=== PATIENT | female | born 1970 | race Caucasian/White ===

== ENCOUNTER 2022-02-09 00:04 | Day surgery (SDC) | payer OTHER, SELFPAY ==
[2022-01-31 12:54] VITALS: BMI 22.4
--- NOTE | 2022-01-31 13:05 | PC.NURSE ---
Report to the Outpatient Waiting Room, entrance under the green pavilion located off [facility], at time 0800 on date 02/09/22. OR Time: 1000. - You and your visitor will be asked a series of questions to screen for COVID 19 for your protection. - A mask is required within the hospital. One visitor will be allowed to accompany the patient into the hospital. Patients visitor will be instructed to remain with patient at all times or leave the building. We will allow the visitor to come back to the postoperative area when patient is ready. Preoperative COVID Testing Requirements: TO E-MAIL COPY OF CARD No COVID Test needed if: (proof is required; if not received patient will have Rapid Test prior to entry) - Patient has received COVID Vaccine at least 14 days prior to procedure date or - Patient has positive COVID test result within last 90 days of surgery date. COVID Test needed if above criteria is not met Patients may have clear liquids (water, carbonated beverages, clear teas, apple juice) until 3 hours prior to surgery with a maximum of 20 ounces. - No food from midnight until time of surgery Take the following medications with a SIP of water the morning of surgery: ALPRAZOLAM (IF NEEDED) Medications to discontinue per physician: VITAMINS/SUPPLEMENTS Date to take last dose: 02/05/22 Please no make-up, nail central african, hairspray, perfume, deodorant, or body powder the day of surgery. No jewelry (including any body piercings) or valuables the day of surgery, leave them at home. Please take a shower or bath the night before, or the morning of, surgery with an antibacterial soap. Wear comfortable, loose fitting clothing. - Jewelry must be removed prior to entering the operating room. Rings and piercings that are not removed may be cut off. - The hospital will not accept responsibility for valuables. - Please leave all valuables, including medications, at home the day of surgery. If you are going home after surgery, a licensed local hazmat driver must drive you home. - NO public transportation without another adult. - We recommend that an adult stay with you for 24 hours following discharge. - We also recommend that you do not drive, make important decision, drink alcoholic beverages, or take any drugs that were not prescribed by your health care provider for at least 24 hours after your discharge time. Follow any additional instructions given to you from your surgeon. Telephone instructions given to CHAR FORDE and asked if any additional questions and then verbalized understanding. Patient advised to call surgeon office or pre surgery nurse liaison [phone] if any additional questions.
--- NOTE | 2022-02-07 17:36 | PM.SD2 ---
Same Day Admit/Disch: HPI History of Present Illness Chief complaint: Anal Skin Tag Narrative: Florence Colon is a 51 year old female With long time history of an external hemorrhoid or large perianal skin tag. She has had intermittent episodes of itching irritation and some bleeding. Her systems became worse last fall. She was started on Anusol. She was seen in the office in October and found to have an anterior midline external hemorrhoid. Besides being uncomfortable, this is a hygiene problem. She is taken to surgery now for excision of this external hemorrhoid. [facility] Past Medical History Medical History Acalculous cholecystitis Arthritis of neck Encounter for surgical aftercare following surgery on the digestive system Spinal stenosis of cervical region Stress incontinence (female) (male) Trigger finger, right middle finger Surgical History Surgical History History of bladder suspension procedure History of hysterectomy History of laparoscopic cholecystectomy 10/23/19 History of tonsillectomy Family History Family History Father Diabetes mellitus Family history of bipolar disorder Family history of gastrointestinal disorder Hypertension Grandparent Hypertension Family history of malignant neoplasm of breast, Onset Age: 77 Family history of malignant neoplasm Family history of malignant neoplasm of breast in first degree relative Mother Family history of malignant neoplasm Family history of thyroid disease Family history of malignant melanoma Social History Social History Smoking status: Never smoker Alcohol intake: current Alcohol use details: 2/YEAR Substance use: never Substance use type: does not use Living arrangements: with family 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 [employer] Gender identity (if verbalized by the patient): Female Spiritual care concerns: No Same Day Admit/Disch: Med Pre-admit Medications Home Medications Medication Instructions Recorded Confirmed Type cholecalciferol (vitamin D3) 50 50 mcg PO DAILY 10/21/19 01/31/22 History mcg (2,000 unit) capsule cyanocobalamin (vitamin B-12) 5,000 mcg PO [id number] 10/21/19 01/31/22 History 5,000 mcg capsule omega-3 fatty acids-fish oil 360 1 cap PO DAILY 10/21/19 01/31/22 History mg-1,200 mg capsule loratadine 10 mg tablet 10 mg PO DAILY 04/07/21 01/31/22 History alprazolam 0.25 mg PO .COMPLEX PRN 01/31/22 01/31/22 History pyridoxine (vitamin B6) 100 mg PO DAILY 01/31/22 01/31/22 History vitamin E 800 unit PO DAILY 01/31/22 01/31/22 History spironolactone 50 mg tablet 50 mg PO QAM #90 tablet 02/01/22 02/09/22 Rx hydrocodone-acetaminophen 1 - 2 tablet PO Q6H PRN #12 tablet 02/09/22 Rx ketorolac 10 mg PO Q6H 4 Days #16 tablet 02/09/22 Rx Exam Const: General: comfortable, no acute distress, alert and awake HENMT: Head: normocephalic and atraumatic Mouth: Yes Normal oral and palatal mucosa present Eyes: Conjunctivae: conjunctivae normal Pupils: Equal, round and reactive pupils present EOM: EOMs intact bilaterally Neck: Neck: normal visual inspection, no lymphadenopathy and nontender Resp: Effort & Inspection: normal respiratory effort Auscultation: clear to auscultation bilaterally Cardio: Rate: regular rate Rhythm: regular rhythm Heart sounds: no gallops, no murmurs and no rubs GI: Inspection: non-distended GI Palp: Yes Soft to palpation, No Tenderness to palpation present (GI), No Hepatomegaly present and No Splenomegaly present Rectal Exam: External hemorrhoid(s) present ( large, pedunculated anterior midline external hemorrhoid.) Skin: Lesions: no lesions Rashes: no rashes Neuro: General: no focal motor deficits and CN's II-XI inta
[2022-02-09] MEDS: ACETAMINOPHEN 500 MG TABLET 1000 MG PO (08:13)
[2022-02-09] MEDS: KETOROLAC 15 MG/ML VIAL (*BKC) IV PUSH (08:39)
[2022-02-09] MEDS: LACTATED RINGERS 1,000 ML 30 ML IV CONT (08:42)
[2022-02-09 08:46] VITALS: BP 111/69; PULSE 89; RESP 16; TEMP 36.9; O2SAT 100
--- NOTE | 2022-02-09 09:29 | WPDHPUPDATE1 ---
History and Physical Update Update Date/Time: 02/09/22 09:29 History and Physical has been reviewed, including an updated exam of the patient. There are NO changes in the patient's condition. Risks, benefits, and alternatives have been discussed and questions answered. Patient agrees to proceed with procedure.
--- NOTE | 2022-02-09 09:37 | WPDANESEPPF ---
Anes - Initial Pre Proc Eval Procedure: Operation Date: 02/09/22 10:00 Proposed Procedures p Excision Anal Skin Tag - David Castellanos MD Date/Time: 02/09/22 09:37 Surgeon: David Castellanos MD Pre Op Diagnosis: Anal Skin Tag Patient Data Age: 51 Gender: F Height: 1.52 m Weight: 54.3 kg Last Vital Signs Temp 36.9 C 02/09/22 08:46 Pulse 89 02/09/22 08:46 Resp 16 02/09/22 08:46 BP 111/69 02/09/22 08:46 Pulse Ox 100 02/09/22 08:46 Allergies Allergy/AdvReac Type Severity Reaction Status Date / Time neomycin Allergy Mild Rash Verified 02/09/22 08:08 [From Neosporin ([id number])] bacitracin Allergy Unknown Rash Verified 02/09/22 08:08 polymyxin B Allergy Unknown Rash Verified 02/09/22 08:08 Home Medications Medication Instructions Recorded Confirmed Type cholecalciferol (vitamin D3) 50 50 mcg PO DAILY 10/21/19 01/31/22 History mcg (2,000 unit) capsule cyanocobalamin (vitamin B-12) 5,000 mcg PO [id number] 10/21/19 01/31/22 History 5,000 mcg capsule omega-3 fatty acids-fish oil 360 1 cap PO DAILY 10/21/19 01/31/22 History mg-1,200 mg capsule loratadine 10 mg tablet 10 mg PO DAILY 04/07/21 01/31/22 History alprazolam 0.25 mg PO .COMPLEX PRN 01/31/22 01/31/22 History pyridoxine (vitamin B6) 100 mg PO DAILY 01/31/22 01/31/22 History vitamin E 800 unit PO DAILY 01/31/22 01/31/22 History spironolactone 50 mg tablet 50 mg PO QAM #90 tablet 02/01/22 02/09/22 Rx Patient hx anesthesia problems: none Family hx anesthesia problems: none Results Review: All pre-operative results and documents have been reviewed as part of the pre-operative evaluation. [facility] Past Medical History Medical History Acalculous cholecystitis Arthritis of neck Encounter for surgical aftercare following surgery on the digestive system Spinal stenosis of cervical region Stress incontinence (female) (male) Trigger finger, right middle finger Surgical History Surgical History History of bladder suspension procedure History of hysterectomy History of laparoscopic cholecystectomy 10/23/19 History of tonsillectomy Family History Family History Father Diabetes mellitus Family history of bipolar disorder Family history of gastrointestinal disorder Hypertension Grandparent Hypertension Family history of malignant neoplasm of breast, Onset Age: 77 Family history of malignant neoplasm Family history of malignant neoplasm of breast in first degree relative Mother Family history of malignant neoplasm Family history of thyroid disease Family history of malignant melanoma Social History Social History Smoking status: Never smoker Alcohol intake: current Alcohol use details: 2/YEAR Substance use: never Substance use type: does not use Living arrangements: with family 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 Informed Consent: The patient's anesthetic plan and its attendant risks and benefits were discussed with the patient/family/POA. Questions were solicited and answers provided to the satisfaction of the patient/family/POA.
[2022-02-09] MEDS: ceFAZolin 2 GM/D5W 50 ML 2 GM/50 ML BAG IVPB (09:39)
--- NOTE | 2022-02-09 09:44 | W.PM.PROC2 ---
Procedure Note - Detailed Date of Procedure 02/09/22 Pre-op Diagnosis External hemorrhoid Post-op Diagnosis Same Procedure Performed Excision external hemorrhoid Surgeon David Castellanos MD Anesthesia General and Local (0.25% Marcaine with epinephrine) Indications Patient has a pedunculated anterior midline external hemorrhoid which is bothersome and hygiene problem. She is taken to surgery now for removal Findings Anterior midline external hemorrhoid, no other significant anorectal pathology Description of Procedure Patient was taken to surgery and placed in prone nicho-knife position. Buttocks were taped apart. Prep and drape was carried out. The perianal area was examined. Hill-Wilson anoscope was placed in the rectum and the anal canal was reviewed. No other findings other than the external hemorrhoid in the anterior midline was noted. Local was infiltrated in the area of this hemorrhoid. The hemorrhoid was excised. It was sent to pathology. The wound was closed with interrupted 4-0 chromic suture. Rectal area was dressed with Xeroform gauze fluffs and tape. Patient was returned to a supine position, awakened and taken to recovery in good condition. Sponge and needle counts were correct x2. Estimated Blood Loss -2 Drains No Packing No Pathology Yes (External hemorrhoid) Complications No immediate complications Condition Stable Disposition Same day
[2022-02-09 10:20] VITALS: BP 104/60; PULSE 85; RESP 12; O2SAT 100
[2022-02-09 10:45] VITALS: BP 117/44; PULSE 81; RESP 16
[2022-02-09 11:15] VITALS: BP 116/60; PULSE 68; RESP 14
[2022-02-09 11:45] VITALS: BP 114/51; PULSE 77; RESP 16
== END 2022-02-09 11:53 | disposition home or self-care (01) ==
PROVIDERS: PCP Family Medicine; Visit Provider Surgery
PROC: (CPT 46999; principal; 2022-02-09 10:00)
DX: K64.4 Residual hemorrhoidal skin tags (principal)
CPT/HCPCS: 46999; 88304; A9270; J0690; J1885; J2250; J2704; J3010; J7120

== ENCOUNTER 2022-05-01 10:10 | Emergency (ER) | payer OTHER, SELFPAY ==
--- NOTE | ~2022-05-01 | XR_ITS ---
XR foot RT min 3V 05/01/2022 10:26 Indication: Right foot pain and bruising Procedure: 4 views right foot Comparison: No prior studies for comparison. Findings: Lisfranc joint intact. Mild osteoarthritis of the first MTP joint. There is a small degener ative calcaneal enthesophyte. No fracture or traumatic malalignment. Impression: 1: No acute fracture. Reviewed, dictated and finalized at location A. Impression: 1: No acute fracture.
[2022-05-01 10:16] VITALS: BP 130/76; PULSE 105; RESP 16; TEMP 36.2; O2SAT 98
--- NOTE | 2022-05-01 10:38 | ED.LOWEXIN ---
HPI - Extremity Injury (Lower) General Chief Complaint: Extremity Problem,Nontraumatic Stated Complaint: right foot sore Time Seen by Provider: 05/01/22 10:11 Source: patient and RN notes reviewed History of Present Illness HPI Narrative: Patient is a 51-year-old female who presents the urgent care with complaints of pain to the ball of the right foot. Patient states its been bothering her since Monday. Patient denies of any known trauma or injury recently but states approximately 1 week ago she does believe she stepped on a bur while on vacation. Denies of any swelling or pain at that time. No other acute complaints. No acute distress noted. Patient aware of the plan of care. Some parts of this dictation were generated by voice recognition software and may contain typographical and/or grammatical inaccuracies. Related Data Home Medications Medication Instructions Recorded Confirmed cholecalciferol (vitamin D3) 50 50 mcg PO DAILY 10/21/19 03/29/22 mcg (2,000 unit) capsule cyanocobalamin (vitamin B-12) 5,000 mcg PO [id number] 10/21/19 03/29/22 5,000 mcg capsule omega-3 fatty acids-fish oil 360 1 cap PO DAILY 10/21/19 03/29/22 mg-1,200 mg capsule loratadine 10 mg tablet (Claritin) 10 mg PO DAILY 04/07/21 03/29/22 alprazolam 0.25 mg tablet 0.25 mg PO .COMPLEX PRN Anxiety 01/31/22 03/29/22 pyridoxine (vitamin B6) 100 mg 100 mg PO DAILY 01/31/22 03/29/22 tablet vitamin E 800 unit capsule 800 unit PO DAILY 01/31/22 03/29/22 triamcinolone acetonide 0.05 % 1 applic topical BID 03/29/22 03/29/22 topical ointment Allergies Allergy/AdvReac Type Severity Reaction Status Date / Time neomycin Allergy Mild Rash Verified 03/29/22 09:49 [From Neosporin ([id number])] bacitracin Allergy Unknown Rash Verified 03/29/22 09:49 polymyxin B Allergy Unknown Rash Verified 03/29/22 09:49 Review of Systems Review of Systems: CONSTITUTIONAL: Denies fever, chills, or sweats. EYES: Denies visual changes, redness, or discharge. ENT: Denies rhinorrhea, congestion, sore throat, or otalgia. CARDIOVASCULAR: Denies chest pain, palpitations, or edema. RESPIRATORY: Denies cough or dyspnea. GASTROINTESTINAL: Denies abdominal pain, nausea, vomiting, or diarrhea. GENITOURINARY: Denies dysuria or hematuria. SKIN: Denies rash or itching. MUSCULOSKELETAL: Reports of pain to the ball of the right foot NEUROLOGIC: Denies headache, numbness, or weakness. All other systems reviewed are negative, except as documented in HPI. Note PMFSH Past Medical History Medical History Acalculous cholecystitis Arthritis of neck Encounter for surgical aftercare following surgery on the digestive system Spinal stenosis of cervical region Stress incontinence (female) (male) Trigger finger, right middle finger Surgical History Surgical History History of bladder suspension procedure History of excision of lesion excision of anal skin tag 02/09/22 History of hysterectomy History of laparoscopic cholecystectomy 10/23/19 History of tonsillectomy Family History Family History Father Diabetes mellitus Family history of bipolar disorder Family history of gastrointestinal disorder Hypertension Grandparent Hypertension Family history of malignant neoplasm of breast, Onset Age: 77 Family history of malignant neoplasm Family history of malignant neoplasm of breast in first degree relative Mother Family history of malignant neoplasm Family history of thyroid disease Family history of malignant melanoma Social History Social History Alcohol intake: current Alcohol use details: 2/YEAR Substance use: never Substance use type: does not use Additional occupation/education comments: [id number] Gender identity (if ve
== END 2022-05-01 10:49 | disposition home or self-care (01) ==
PROVIDERS: Emergency Provider Nurse Practitioner Family; PCP Family Medicine
DX: M77.8 Other enthesopathies, not elsewhere classified (principal); M47.812 Spondylosis without myelopathy or radiculopathy, cervical region; M48.02 Spinal stenosis, cervical region
CPT/HCPCS: 73630; 99213; G0463

== ENCOUNTER 2022-09-11 11:57 | Emergency (ER) | payer OTHER, SELFPAY ==
--- NOTE | 2022-09-11 12:07 | ED.EAR ---
HPI - Ear Problem General Chief complaint: Ear Stated complaint: EAR INFECTION Time Seen by Provider: 09/11/22 12:26 Source: patient, RN notes reviewed and old records reviewed Mode of arrival: ambulatory Limitations: no limitations History of Present Illness HPI Narrative: 51-year-old year female presents to the [facility] with bilateral ear pain and pressure. States that she was recently diagnosed with a bilateral ear infection and just finished a round of antibiotics. Also has a history of excessive cerumen and dermatitis in the ear canals. Denies any fevers. Denies any dizziness. Related Data Home Medications Medication Instructions Recorded Confirmed cholecalciferol (vitamin D3) 50 50 mcg PO DAILY 10/21/19 09/11/22 mcg (2,000 unit) capsule cyanocobalamin (vitamin B-12) 5,000 mcg PO [id number] 10/21/19 09/11/22 5,000 mcg capsule omega-3 fatty acids-fish oil 360 1 cap PO DAILY 10/21/19 09/11/22 mg-1,200 mg capsule loratadine 10 mg tablet (Claritin) 10 mg PO DAILY 04/07/21 09/11/22 alprazolam 0.25 mg tablet 0.25 mg PO .COMPLEX PRN Anxiety 01/31/22 09/11/22 pyridoxine (vitamin B6) 100 mg 100 mg PO DAILY 01/31/22 09/11/22 tablet vitamin E 800 unit capsule 800 unit PO DAILY 01/31/22 09/11/22 triamcinolone acetonide 0.05 % 1 applic topical BID 03/29/22 09/11/22 topical ointment Allergies Allergy/AdvReac Type Severity Reaction Status Date / Time neomycin Allergy Mild Rash Verified 03/29/22 09:49 [From Neosporin ([id number])] bacitracin Allergy Unknown Rash Verified 03/29/22 09:49 polymyxin B Allergy Unknown Rash Verified 03/29/22 09:49 Review of Systems Review of Systems: All systems reviewed & are unremarkable except as noted in HPI and below Constitutional: Constitutional: Reports no additional constitutional complaints, Denies chills and Denies fever(s) Eyes: Eyes: Reports no additional eye complaints ENT: Reports as per HPI Cardiovascular: Cardiovascular: Reports no additional cardiovascular complaints Respiratory: Respiratory: Reports no additional respiratory complaints Gastrointestinal: Gastrointestinal: Reports no additional gastrointestinal complaints Musculoskeletal: Musculoskeletal: Reports no additional musculoskeletal complaints Integumentary/Breasts: Skin/Breast: Reports system reviewed and no additional complaints, except as docu Neurologic: Reports system reviewed and no additional complaints, except as documented Psychiatric: Psychiatric: Reports no additional psychiatric complaints Allergic/Immunologic: Allergic/Immunologic: Reports no additional allergic/immunologic complaints [facility] Past Medical History Medical History Acalculous cholecystitis Arthritis of neck Encounter for surgical aftercare following surgery on the digestive system Spinal stenosis of cervical region Stress incontinence (female) (male) Trigger finger, right middle finger Surgical History Surgical History History of bladder suspension procedure History of excision of lesion excision of anal skin tag 02/09/22 History of hysterectomy History of laparoscopic cholecystectomy 10/23/19 History of tonsillectomy Family History Family History Father Diabetes mellitus Family history of bipolar disorder Family history of gastrointestinal disorder Hypertension Grandparent Hypertension Family history of malignant neoplasm of breast, Onset Age: 77 Family history of malignant neoplasm Family history of malignant neoplasm of breast in first degree relative Mother Family history of malignant neoplasm Family history of thyroid disease Family history of malignant melanoma Social History Social History Alcohol intake: current Alcohol use details: 2/YEAR Substance use:
[2022-09-11 12:10] VITALS: BP 97/58; PULSE 75; RESP 16; TEMP 36.8; O2SAT 100
== END 2022-09-11 13:00 | disposition home or self-care (01) ==
PROVIDERS: Emergency Provider Nurse Practitioner; PCP Family Medicine
DX: H65.03 Acute serous otitis media, bilateral (principal); H61.23 Impacted cerumen, bilateral
CPT/HCPCS: 69210; 99213; G0463

== ENCOUNTER 2022-09-28 17:36 | Emergency (ER) | payer OTHER, SELFPAY ==
[2022-09-28 17:43] VITALS: BP 107/81; PULSE 98; RESP 16; TEMP 36.2; O2SAT 99
--- NOTE | 2022-09-28 17:43 | ED.EAR ---
HPI - Ear Problem General Chief complaint: Ear Stated complaint: EARACHE Time Seen by Provider: 09/28/22 17:44 Source: patient Mode of arrival: ambulatory Limitations: no limitations History of Present Illness HPI Narrative: 55-year-old female presents with complaint of right ear pain for 2-3 days. Reports history of bilateral ear infection September 05. Has taken amoxicillin to treat your infection. Return because she had continued clogged and pain feeling to bilateral ears. States that both ears were irrigated at that time. Afebrile. History of her ear infections due to narrow ear canals. All systems reviewed and negative except as noted above. Related Data Home Medications Medication Instructions Recorded Confirmed cholecalciferol (vitamin D3) 50 50 mcg PO DAILY 10/21/19 09/28/22 mcg (2,000 unit) capsule cyanocobalamin (vitamin B-12) 5,000 mcg PO [id number] 10/21/19 09/28/22 5,000 mcg capsule omega-3 fatty acids-fish oil 360 1 cap PO DAILY 10/21/19 09/28/22 mg-1,200 mg capsule pyridoxine (vitamin B6) 100 mg 100 mg PO DAILY 01/31/22 09/28/22 tablet vitamin E 800 unit capsule 800 unit PO DAILY 01/31/22 09/28/22 triamcinolone acetonide 0.05 % 1 applic topical BID 03/29/22 09/28/22 topical ointment fluticasone propionate 50 1 spray intranasal DAILY 09/28/22 09/28/22 mcg/actuation nasal spray,suspension Allergies Allergy/AdvReac Type Severity Reaction Status Date / Time neomycin Allergy Mild Rash Verified 09/28/22 17:45 [From Neosporin ([id number])] bacitracin Allergy Unknown Rash Verified 09/28/22 17:45 polymyxin B Allergy Unknown Rash Verified 09/28/22 17:45 Review of Systems Review of Systems: CONSTITUTIONAL: Denies fever, chills, or sweats. EYES: Denies visual changes, redness, or discharge. ENT: Denies rhinorrhea, congestion, sore throat. Reports right ear pain. CARDIOVASCULAR: Denies chest pain, palpitations, or edema. RESPIRATORY: Denies cough or dyspnea. GASTROINTESTINAL: Denies abdominal pain, nausea, vomiting, or diarrhea. GENITOURINARY: Denies dysuria or hematuria. SKIN: Denies rash or itching. MUSCULOSKELETAL: Denies back pain, joint pain, or myalgia. NEUROLOGIC: Denies headache, numbness, or weakness. PSYCHIATRIC: Denies anxiety or depression. All other systems reviewed are negative, except as documented in HPI. [facility] Past Medical History Medical History Acalculous cholecystitis Arthritis of neck Encounter for surgical aftercare following surgery on the digestive system Spinal stenosis of cervical region Stress incontinence (female) (male) Trigger finger, right middle finger Surgical History Surgical History History of bladder suspension procedure History of excision of lesion excision of anal skin tag 02/09/22 History of hysterectomy History of laparoscopic cholecystectomy 10/23/19 History of tonsillectomy Family History Family History Father Diabetes mellitus Family history of bipolar disorder Family history of gastrointestinal disorder Hypertension Grandparent Hypertension Family history of malignant neoplasm of breast, Onset Age: 77 Family history of malignant neoplasm Family history of malignant neoplasm of breast in first degree relative Mother Family history of malignant neoplasm Family history of thyroid disease Family history of malignant melanoma Social History Social History (Updated 09/19/22 @ 13:00 by Carlos David MA) Smoking status: Never smoker Alcohol intake: current Alcohol use details: 2/YEAR Substance use: never Substance use type: does not use 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
== END 2022-09-28 17:57 | disposition home or self-care (01) ==
PROVIDERS: Emergency Provider Nurse Practitioner Family; PCP Family Medicine
DX: H60.91 Unspecified otitis externa, right ear (principal); M47.812 Spondylosis without myelopathy or radiculopathy, cervical region; M48.02 Spinal stenosis, cervical region
CPT/HCPCS: 99213; G0463

== ENCOUNTER 2022-12-22 16:40 | Emergency (ER) | payer OTHER, SELFPAY ==
--- NOTE | 2022-12-22 16:45 | ED.URI ---
HPI - URI/Sore Throat General Chief Complaint: Upper Respiratory Infection Stated Complaint: SORE THROAT/NO VOICE Time Seen by Provider: 12/22/22 16:45 Source: patient and RN notes reviewed History of Present Illness HPI Narrative: Patient is a 52-year-old female presents to urgent care with complaints of sore throat, voice loss and congestion. Patient states it started on Monday this seemed to have worsened in the last couple days. Patient also reports of headaches. Patient has been taking Tylenol, ibuprofen and allergy medication. Patient states that her 2 grandsons were positive for strep last week. Patient denies any fevers, nausea vomiting. No other acute complaints. No acute distress noted. Patient aware of the plan of care. Some parts of this dictation were generated by voice recognition software and may contain typographical and/or grammatical inaccuracies. Related Data Home Medications Medication Instructions Recorded Confirmed cholecalciferol (vitamin D3) 50 50 mcg PO DAILY 10/21/19 12/22/22 mcg (2,000 unit) capsule cyanocobalamin (vitamin B-12) 5,000 mcg PO [id number] 10/21/19 12/22/22 5,000 mcg capsule omega-3 fatty acids-fish oil 360 1 cap PO DAILY 10/21/19 12/22/22 mg-1,200 mg capsule pyridoxine (vitamin B6) 100 mg 100 mg PO DAILY 01/31/22 12/22/22 tablet vitamin E 800 unit capsule 800 unit PO DAILY 01/31/22 09/28/22 triamcinolone acetonide 0.05 % 1 applic topical BID 03/29/22 12/22/22 topical ointment fluticasone propionate 50 1 spray intranasal DAILY 09/28/22 09/28/22 mcg/actuation nasal spray,suspension Allergies Allergy/AdvReac Type Severity Reaction Status Date / Time neomycin Allergy Mild Rash Verified 12/22/22 16:49 [From Neosporin ([id number])] bacitracin Allergy Unknown Rash Verified 12/22/22 16:49 polymyxin B Allergy Unknown Rash Verified 12/22/22 16:49 Review of Systems Review of Systems: CONSTITUTIONAL: Denies fever, chills, or sweats. EYES: Denies visual changes, redness, or discharge. ENT: Reports of hoarseness/voice loss, congestion, sore throat CARDIOVASCULAR: Denies chest pain, palpitations, or edema. RESPIRATORY: Denies cough or dyspnea. GASTROINTESTINAL: Denies abdominal pain, nausea, vomiting, or diarrhea. GENITOURINARY: Denies dysuria or hematuria. SKIN: Denies rash or itching. MUSCULOSKELETAL: Denies back pain, joint pain, or myalgia. NEUROLOGIC: Reports of headaches All other systems reviewed are negative, except as documented in HPI. [facility] Past Medical History Medical History Acalculous cholecystitis Arthritis of neck Encounter for surgical aftercare following surgery on the digestive system Spinal stenosis of cervical region Stress incontinence (female) (male) Trigger finger, right middle finger Surgical History Surgical History History of bladder suspension procedure History of excision of lesion excision of anal skin tag 02/09/22 History of hysterectomy History of laparoscopic cholecystectomy 10/23/19 History of tonsillectomy Family History Family History Father Diabetes mellitus Family history of bipolar disorder Family history of gastrointestinal disorder Hypertension Grandparent Hypertension Family history of malignant neoplasm of breast, Onset Age: 77 Family history of malignant neoplasm Family history of malignant neoplasm of breast in first degree relative Mother Family history of malignant neoplasm Family history of thyroid disease Family history of malignant melanoma Social History Social History (Updated 09/19/22 @ 13:00 by Carlos David MA) Smoking status: Never smoker Alcohol intake: current Alcohol use details: 2/YEAR Substance use: never Substance use type: does not use Living arrangements: with family Occu
[2022-12-22 16:58] VITALS: BP 123/88; PULSE 90; RESP 16; TEMP 36.6; O2SAT 100
== END 2022-12-22 17:18 | disposition home or self-care (01) ==
PROVIDERS: Emergency Provider Nurse Practitioner Family; PCP Family Medicine
DX: J04.0 Acute laryngitis (principal); M47.812 Spondylosis without myelopathy or radiculopathy, cervical region; M48.02 Spinal stenosis, cervical region
CPT/HCPCS: 87081; 87880; 99213; G0463

== ENCOUNTER 2023-01-06 16:57 | Emergency (ER) | payer OTHER, SELFPAY ==
[2023-01-06 17:15] VITALS: BP 117/83; PULSE 91; RESP 16; TEMP 36.9; O2SAT 99
--- NOTE | 2023-01-06 18:02 | ED.URI ---
HPI - URI/Sore Throat General Chief Complaint: Upper Respiratory Infection Stated Complaint: COUGH/HEADACHE Time Seen by Provider: 01/06/23 18:02 Source: patient, RN notes reviewed and old records reviewed Mode of arrival: ambulatory Limitations: no limitations History of Present Illness HPI Narrative: 52 year old female who presents to [facility] care with complaints of cough for the past 2 weeks with greenish tinged phlegm, headache, head congestion and head pressure also. Patient reports that she was seen in early December for laryngitis and sore throat and treated with prednisone but cough continues. Patient reports that she has been taking decongestants without improvement in symptoms. Patient states that cough is worse at night, reports no known fevers, chills or body aches. MD elicited complaint: cough, nasal congestion and sinus pain Onset (ago): week(s) (2) Able to tolerate fluids by mouth: Yes Treatments prior to arrival: other (decongestestants) Related Data Home Medications Medication Instructions Recorded Confirmed cholecalciferol (vitamin D3) 50 50 mcg PO DAILY 10/21/19 01/06/23 mcg (2,000 unit) capsule cyanocobalamin (vitamin B-12) 5,000 mcg PO [id number] 10/21/19 01/06/23 5,000 mcg capsule omega-3 fatty acids-fish oil 360 1 cap PO DAILY 10/21/19 01/06/23 mg-1,200 mg capsule pyridoxine (vitamin B6) 100 mg 100 mg PO DAILY 01/31/22 01/06/23 tablet vitamin E 800 unit capsule 800 unit PO DAILY 01/31/22 01/06/23 triamcinolone acetonide 0.05 % 1 applic topical BID PRN Itching 03/29/22 01/06/23 topical ointment fluticasone propionate 50 1 spray intranasal DAILY 01/06/23 01/06/23 mcg/actuation nasal spray,suspension loratadine 10 mg tablet (Claritin) 10 mg PO DAILY 01/06/23 01/06/23 Allergies Allergy/AdvReac Type Severity Reaction Status Date / Time neomycin Allergy Mild Rash Verified 01/06/23 17:13 [From Neosporin ([id number])] bacitracin Allergy Unknown Rash Verified 01/06/23 17:13 polymyxin B Allergy Unknown Rash Verified 01/06/23 17:13 Review of Systems Review of Systems: CONSTITUTIONAL: Denies malaise, chills, sweats, or fever. EYES: Denies visual changes, redness, or discharge. ENT: Reports rhinorrhea, congestion, sinus pain, no otalgia or sore throat. CARDIOVASCULAR: Denies chest pain, palpitations, or edema. RESPIRATORY: Reports cough.? Denies dyspnea. GASTROINTESTINAL: Denies abdominal pain, nausea, vomiting, diarrhea SKIN: Denies rash or itching. MUSCULOSKELETAL: Denies myalgia. NEUROLOGIC: Denies headache. All systems reviewed & are unremarkable except as noted in HPI and below PMFSH Past Medical History Medical History Acalculous cholecystitis Arthritis of neck Encounter for surgical aftercare following surgery on the digestive system Sinusitis Spinal stenosis of cervical region Stress incontinence (female) (male) Trigger finger, right middle finger Surgical History Surgical History History of bladder suspension procedure History of excision of lesion excision of anal skin tag 02/09/22 History of hysterectomy History of laparoscopic cholecystectomy 10/23/19 History of tonsillectomy Family History Family History Father Diabetes mellitus Family history of bipolar disorder Family history of gastrointestinal disorder Hypertension Grandparent Hypertension Family history of malignant neoplasm of breast, Onset Age: 77 Family history of malignant neoplasm Family history of malignant neoplasm of breast in first degree relative Mother Family history of malignant neoplasm Family history of thyroid disease Family history of malignant melanoma Social History Social History Smoking status: Never smoker Alcohol intake: juan manuel
== END 2023-01-06 18:18 | disposition home or self-care (01) ==
PROVIDERS: Emergency Provider Registered Nurse; PCP Family Medicine
DX: J32.9 Chronic sinusitis, unspecified (principal); R05.9 Cough, unspecified; M47.812 Spondylosis without myelopathy or radiculopathy, cervical region; M48.02 Spinal stenosis, cervical region
CPT/HCPCS: 99213; G0463

== ENCOUNTER 2023-10-28 18:53 | Emergency (ER) | payer OTHER, SELFPAY ==
[2023-10-28 18:58] VITALS: BP 121/75; PULSE 91; RESP 16; TEMP 36.9; O2SAT 98
--- NOTE | 2023-10-28 19:19 | ED.URI ---
HPI - URI/Sore Throat General Chief Complaint: Upper Respiratory Infection Stated Complaint: Sore Throat;Fever Time Seen by Provider: 10/28/23 19:07 Source: patient and RN notes reviewed Mode of arrival: ambulatory Limitations: no limitations History of Present Illness HPI Narrative: Patient presents today complaining of cough, congestion with sore throat and hoarse voice since yesterday. Denies fever, shortness of breath. Currently rates her pain 5/10 and has been taking Mucinex and NyQuil which provide some mild relief. She had a negative COVID-19 test at home. Related Data Home Medications Medication Instructions Recorded Confirmed cholecalciferol (vitamin D3) 50 50 mcg PO DAILY 10/21/19 10/28/23 mcg (2,000 unit) capsule cyanocobalamin (vitamin B-12) 5,000 mcg PO [id number] 10/21/19 10/28/23 5,000 mcg capsule omega-3 fatty acids-fish oil 360 1 cap PO DAILY 10/21/19 10/28/23 mg-1,200 mg capsule pyridoxine (vitamin B6) 100 mg 100 mg PO DAILY 01/31/22 10/28/23 tablet Allergies Allergy/AdvReac Type Severity Reaction Status Date / Time neomycin Allergy Mild Rash Verified 10/28/23 19:04 [From Neosporin ([id number])] bacitracin Allergy Unknown Rash Verified 10/28/23 19:04 polymyxin B Allergy Unknown Rash Verified 10/28/23 19:04 Review of Systems Review of Systems: CONSTITUTIONAL: Denies body aches, fever, chills, or sweats. EYES: Denies visual changes, redness, or discharge. ENT: Denies rhinorrhea,otalgia.+ congestion, sore throat, hoarse voice CARDIOVASCULAR: Denies chest pain, palpitations, or edema. RESPIRATORY: Denies dyspnea.+ cough GASTROINTESTINAL: Denies abdominal pain, nausea, vomiting, or diarrhea. GENITOURINARY: Denies dysuria or hematuria. SKIN: Denies rash, itching, or wounds. MUSCULOSKELETAL: Denies back pain, joint pain, or myalgia. NEUROLOGIC: Denies headache, numbness, tingling, or weakness. PSYCH: Denies depression or anxiety. [facility] Past Medical History Medical History Acalculous cholecystitis Arthritis of neck Encounter for surgical aftercare following surgery on the digestive system Sinusitis Spinal stenosis of cervical region Stress incontinence (female) (male) Trigger finger, right middle finger Surgical History Surgical History History of bladder suspension procedure History of excision of lesion excision of anal skin tag 02/09/22 History of hysterectomy History of laparoscopic cholecystectomy 10/23/19 History of tonsillectomy Family History Family History Father Diabetes mellitus Family history of bipolar disorder Family history of gastrointestinal disorder Hypertension Grandparent Hypertension Family history of malignant neoplasm of breast, Onset Age: 77 Family history of malignant neoplasm Family history of malignant neoplasm of breast in first degree relative Mother Family history of malignant neoplasm Family history of thyroid disease Family history of malignant melanoma Social History Social History Smoking status: Never smoker Alcohol intake: current Alcohol use details: 2/YEAR Substance use: never Substance use type: does not use Living arrangements: with family Occupation/Education: occupation Additional occupation/education comments: [employer] Gender identity (if verbalized by the patient): Female Spiritual care concerns: No Comments At time of signature, I have reviewed and agree with nursing past medical, surgical, social and family history unless otherwise noted. Please see nursing chart for further information. There is no relevant family history pertinent to the presenting complaint Exam Narrative: GENERAL: Mildly ill-appearing, well-nourish
== END 2023-10-28 19:29 | disposition home or self-care (01) ==
PROVIDERS: Emergency Provider Nurse Practitioner; PCP Family Medicine
DX: J06.9 Acute upper respiratory infection, unspecified (principal); M47.812 Spondylosis without myelopathy or radiculopathy, cervical region; M48.02 Spinal stenosis, cervical region
CPT/HCPCS: 87081; 87880; 99213; G0463

== ENCOUNTER 2023-11-14 16:32 | Emergency (ER) | payer OTHER, SELFPAY ==
[2023-11-14 16:41] VITALS: BP 116/82; PULSE 79; RESP 16; TEMP 36.4; O2SAT 100
--- NOTE | 2023-11-14 16:51 | ED.URI ---
HPI - URI/Sore Throat General Chief Complaint: Upper Respiratory Infection Stated Complaint: Congestion, Headache, Runny Nose Time Seen by Provider: 11/14/23 16:50 Source: patient Mode of arrival: ambulatory Limitations: no limitations History of Present Illness HPI Narrative: Florence is a 53-year-old female patient presenting to the clinic today with complaints of cough, headache, and runny nose with congestion. She reports has been going on for 3 weeks. Does have sinus pressure and headaches. Yellow nasal drainage. MD elicited complaint: cough, rhinorrhea, nasal congestion and sinus pain Related Data Home Medications Medication Instructions Recorded Confirmed cholecalciferol (vitamin D3) 50 50 mcg PO DAILY 10/21/19 10/28/23 mcg (2,000 unit) capsule cyanocobalamin (vitamin B-12) 5,000 mcg PO [id number] 10/21/19 10/28/23 5,000 mcg capsule omega-3 fatty acids-fish oil 360 1 cap PO DAILY 10/21/19 10/28/23 mg-1,200 mg capsule pyridoxine (vitamin B6) 100 mg 100 mg PO DAILY 01/31/22 10/28/23 tablet Allergies Allergy/AdvReac Type Severity Reaction Status Date / Time neomycin Allergy Mild Rash Verified 10/28/23 19:04 [From Neosporin ([id number])] bacitracin Allergy Unknown Rash Verified 10/28/23 19:04 polymyxin B Allergy Unknown Rash Verified 10/28/23 19:04 Review of Systems Review of Systems: Pertinent positives per HPI. Patient denies any fever, chills, rash, headache, visual changes, dizziness, cough, shortness of breath, chest pain, palpitations, nausea, vomiting, diarrhea, constipation, abdominal pain, or any urinary issues. [facility] Past Medical History Medical History Acalculous cholecystitis Arthritis of neck Encounter for surgical aftercare following surgery on the digestive system Sinusitis Spinal stenosis of cervical region Stress incontinence (female) (male) Trigger finger, right middle finger Surgical History Surgical History History of bladder suspension procedure History of excision of lesion excision of anal skin tag 02/09/22 History of hysterectomy History of laparoscopic cholecystectomy 10/23/19 History of tonsillectomy Family History Family History Father Diabetes mellitus Family history of bipolar disorder Family history of gastrointestinal disorder Hypertension Grandparent Hypertension Family history of malignant neoplasm of breast, Onset Age: 77 Family history of malignant neoplasm Family history of malignant neoplasm of breast in first degree relative Mother Family history of malignant neoplasm Family history of thyroid disease Family history of malignant melanoma Social History Social History Smoking status: Never smoker Alcohol intake: current Alcohol use details: 2/YEAR Substance use: never Substance use type: does not use Living arrangements: with family Occupation/Education: occupation Additional occupation/education comments: [employer] Gender identity (if verbalized by the patient): Female Spiritual care concerns: No Comments At the time of my signature, I reviewed and agree with the nursing past medical, surgical, social, and family history. There is no relevant family history pertinent to the patient complaint. Exam Narrative: General: Well-developed, well nourished, in no apparent distress Head: Normocephalic, atraumatic Eyes: Pupils equally round and reactive to light bilaterally, EOM intact, sclera and conjunctive clear, no discharge, lids normal Ears: TMs intact and clear, ear canals clear, no drainage, grossly hearing normal. Nose: Nares patent, yellow nasal discharge, moderate inflammation, maxillary and frontal sinus tenderness. Mouth: Oral pharynx without lesi
== END 2023-11-14 16:59 | disposition home or self-care (01) ==
PROVIDERS: Emergency Provider Nurse Practitioner Family; PCP Family Medicine
DX: J01.80 Other acute sinusitis (principal); B96.89 Other specified bacterial agents as the cause of diseases classified elsewhere
CPT/HCPCS: 99213; G0463

== ENCOUNTER 2024-01-06 19:05 | Emergency (ER) | payer OTHER, SELFPAY ==
[2024-01-06 19:10] VITALS: BP 141/68; PULSE 109; RESP 16; TEMP 36.8; O2SAT 100
--- NOTE | 2024-01-06 19:28 | ED.FEMALEGU ---
HPI - Female Genitourinary General Chief complaint: Urogenital-Female Stated complaint: Uti symptoms Time Seen by Provider: 01/06/24 19:19 Source: patient and RN notes reviewed Mode of arrival: ambulatory Limitations: no limitations History of Present Illness HPI Narrative: Patient presents today complaining of a 2 day history of dysuria with frequency and urgency that started today. Patient also noted a pink tinge on her toilet paper with wiping. Denies abdominal pain, back pain. She tried some cranberry juice with some relief yesterday, but symptoms returned today. Related Data Home Medications Medication Instructions Recorded Confirmed cholecalciferol (vitamin D3) 50 50 mcg PO DAILY 10/21/19 01/06/24 mcg (2,000 unit) capsule cyanocobalamin (vitamin B-12) 5,000 mcg PO [id number] 10/21/19 01/06/24 5,000 mcg capsule omega-3 fatty acids-fish oil 360 1 cap PO DAILY 10/21/19 01/06/24 mg-1,200 mg capsule pyridoxine (vitamin B6) 100 mg 100 mg PO DAILY 01/31/22 01/06/24 tablet Allergies Allergy/AdvReac Type Severity Reaction Status Date / Time neomycin Allergy Mild Rash Verified 01/06/24 19:13 [From Neosporin ([id number])] bacitracin Allergy Unknown Rash Verified 01/06/24 19:13 polymyxin B Allergy Unknown Rash Verified 01/06/24 19:13 Review of Systems Review of Systems: CONSTITUTIONAL: Denies body aches, fever, chills, or sweats. EYES: Denies visual changes, redness, or discharge. ENT: Denies rhinorrhea, congestion, sore throat, or otalgia. CARDIOVASCULAR: Denies chest pain, palpitations, or edema. RESPIRATORY: Denies cough or dyspnea. GASTROINTESTINAL: Denies abdominal pain, nausea, vomiting, or diarrhea. GENITOURINARY:+ dysuria, frequency, urgency SKIN: Denies rash, itching, or wounds. MUSCULOSKELETAL: Denies back pain, joint pain, or myalgia. NEUROLOGIC: Denies headache, numbness, tingling, or weakness. PSYCH: Denies depression or anxiety. [facility] Past Medical History Medical History Acalculous cholecystitis Arthritis of neck Encounter for surgical aftercare following surgery on the digestive system Sinusitis Spinal stenosis of cervical region Stress incontinence (female) (male) Trigger finger, right middle finger Surgical History Surgical History History of bladder suspension procedure History of excision of lesion excision of anal skin tag 02/09/22 History of hysterectomy History of laparoscopic cholecystectomy 10/23/19 History of tonsillectomy Family History Family History Father Diabetes mellitus Family history of bipolar disorder Family history of gastrointestinal disorder Hypertension Grandparent Hypertension Family history of malignant neoplasm of breast, Onset Age: 77 Family history of malignant neoplasm Family history of malignant neoplasm of breast in first degree relative Mother Family history of malignant neoplasm Family history of thyroid disease Family history of malignant melanoma Social History Social History Smoking status: Never smoker Alcohol intake: current Alcohol use details: 2/YEAR Substance use: never Substance use type: does not use Living arrangements: with family Occupation/Education: occupation Additional occupation/education comments: [employer] Gender identity (if verbalized by the patient): Female Spiritual care concerns: No Comments At time of signature, I have reviewed and agree with nursing past medical, surgical, social and family history unless otherwise noted. Please see nursing chart for further information. There is no relevant family history pertinent to the presenting complaint Exam Narrative: GENERAL: Well-appearing, well-nourished, and in
== END 2024-01-06 19:35 | disposition home or self-care (01) ==
PROVIDERS: Emergency Provider Nurse Practitioner; PCP Family Medicine
DX: N30.01 Acute cystitis with hematuria (principal); B96.20 Unspecified Escherichia coli [E. coli] as the cause of diseases classified elsewhere; M47.812 Spondylosis without myelopathy or radiculopathy, cervical region; M48.02 Spinal stenosis, cervical region
CPT/HCPCS: 81003; 87077; 87086; 87186; 99213; G0463

== ENCOUNTER 2024-03-18 11:32 | Outpatient (CLI) | payer OTHER, SELFPAY ==
[2024-03-18 18:49] LABS: Basophils Percent Auto 0.4 % (0.2-1.2); Eosinophils Absolute Auto 0.1 K/mm3 (0-0.3); Eosinophils Percent Auto 0.7 % (0-4.4); Hemoglobin 15.9 g/dL (12.0-15.0); Immature Granulocyte Absolute 0.03 K/mm3 (0.00-0.031); Immature Granulocyte Percent A 0.4 % (0-0.5); Lymphocytes Absolute Auto 1.83 K/mm3 (0.9-3.2); Lymphocytes Percent Auto 27.2 % (18.3-44.2); Mean Corpuscular HGB Conc 33.1 g/dl (32-36); Mean Corpuscular Hemoglobin 30.6 pg (26-34); Mean Corpuscular Volume 92.5 fl (80-100); Mean Platelet Volume 10.3 fl (7.4-10.4); Monocytes Absolute Auto 0.6 K/mm3 (0.1-0.6); Monocytes Percent Auto 8.5 % (2.6-8.5); Neutrophils Absolute Auto 4.2 K/mm3 (1.3-6.7); Neutrophils Percent Auto 62.8 % (45.5-73.1); Platelet Count Result 233 k/mm3 (150-375); Red Blood Count 5.19 M/mm3 (4.2-5.4); Red Cell Distribution Width 11.9 % (11.5-14.5); White Blood Count 6.7 K/mm3 (4.5-10.0)
[2024-03-18 19:06] LABS: Anion Gap 6 mmol/L (4-12); Blood Urea Nitrogen 24 mg/dL (7-17); CRP < 0.5 mg/dL (<1.0); Calcium 10.1 mg/dL (8.4-10.2); Carbon Dioxide 30 mmol/L (22-30); Chloride 105 mmol/L (98-107); Estimated Glomerular Filt Rate > 60; Glucose 92 mg/dL (65-110); Potassium 4.5 mmol/L (3.4-5.0); Sodium 141 mmol/L (137-145)
[2024-03-18 19:29] LABS: Thyroid Stimulating Hormone 0.105 uIU/mL (0.465-4.680)
[2024-03-18 19:34] LABS: Vitamin D 25 Hydroxy 75.6 ng/mL
[2024-03-18 20:12] LABS: Erythrocyte Sedimentation Rate 7 mm/hr (0-20)
== END 2024-03-18 11:33 | disposition home or self-care (01) ==
LOC: ANHGOSHLAB 11:33
PROVIDERS: PCP Family Medicine; Visit Provider Nurse Practitioner Family
DX: E53.8 Deficiency of other specified B group vitamins (principal); E55.9 Vitamin D deficiency, unspecified; F41.9 Anxiety disorder, unspecified; Z00.00 Encounter for general adult medical examination without abnormal findings; M25.50 Pain in unspecified joint
CPT/HCPCS: 36415; 80048; 82306; 82607; 84443; 85025; 85652; 86038; 86140

== ENCOUNTER 2024-04-19 07:58 | Outpatient (CLI) | payer OTHER, SELFPAY ==
[2024-04-19 15:38] LABS: Cholesterol 236 mg/dL (0-200); HDL Direct 81 mg/dL; Triglycerides 74 mg/dL (<150)
[2024-04-19 15:49] LABS: LDL Cholesterol Direct 123 mg/dL
== END 2024-04-19 07:59 | disposition home or self-care (01) ==
LOC: ANHGOSHLAB 08:00
PROVIDERS: PCP Family Medicine; Visit Provider Nurse Practitioner Family
DX: Z00.00 Encounter for general adult medical examination without abnormal findings (principal); F41.9 Anxiety disorder, unspecified
CPT/HCPCS: 36415; 80061

== ENCOUNTER 2024-09-28 08:15 | Emergency (ER) | payer OTHER, SELFPAY ==
[2024-09-28 08:21] VITALS: BP 115/72; PULSE 75; RESP 16; TEMP 36.1; O2SAT 100
--- NOTE | 2024-09-28 08:24 | ED_ITS ---
HPI - Female Genitourinary General Chief complaint: Urogenital-Female Stated complaint: Uti Symptoms Time Seen by Provider: 09/28/24 08:32 Source: patient, RN notes reviewed and old records reviewed Mode of arrival: ambulatory Limitations: no limitations History of Present Illness HPI Narrative: 54 year old female who presents to [facility] with complaints of some low back pain and some soreness feeling when she urinates since last evening with no CVA tenderness or any visualized blood in urine. Patient reports no fevers or chills, no nausea or vomiting or diarrhea. Patient reports no concern for STD exposure.She reports some past history of bladder infections and has had bladder suspension in the past. MD elicited complaint: UTI Pertinent past history: other (previous UTI) Onset (ago): day(s) (last night) Severity: mild Vaginal discharge: none Vaginal bleeding: none Urinary symptoms: Dysuria (soreness with urination and some low back pain) Treatment prior to arrival: other (increased water consumption) Related Data Home Medications Medication Instructions Recorded Confirmed cholecalciferol (vitamin D3) 50 50 mcg PO DAILY 10/21/19 09/28/24 mcg (2,000 unit) capsule cyanocobalamin (vitamin B-12) 5,000 mcg PO [id number] 10/21/19 09/28/24 5,000 mcg capsule omega-3 fatty acids-fish oil 360 1 cap PO DAILY 10/21/19 09/28/24 mg-1,200 mg capsule pyridoxine (vitamin B6) 100 mg 100 mg PO DAILY 01/31/22 09/28/24 tablet minoxidil 2.5 mg tablet 2.5 mg PO DAILY 09/28/24 09/28/24 Allergies Allergy/AdvReac Type Severity Reaction Status Date / Time neomycin Allergy Mild Rash Verified 09/28/24 08:35 [From Neosporin ([id number])] bacitracin Allergy Unknown Rash Verified 09/28/24 08:35 polymyxin B Allergy Unknown Rash Verified 09/28/24 08:35 Review of Systems Review of Systems: CONSTITUTIONAL: Denies fever, chills, or sweats. CARDIOVASCULAR: Denies chest pain, palpitations, or edema. RESPIRATORY: Denies cough or dyspnea. GASTROINTESTINAL: Denies abdominal pain, nausea, vomiting, or diarrhea. GENITOURINARY: Reports mild dysuria, no frequency, urgency. Denies flank pain or hematuria. SKIN: Denies rash or itching. MUSCULOSKELETAL: Reports low back pain or myalgia. Denies CVA tenderness NEUROLOGIC: Denies headache All systems reviewed & are unremarkable except as noted in HPI and below PMFSH Past Medical History Medical History Acalculous cholecystitis Arthritis of neck Encounter for surgical aftercare following surgery on the digestive system Sinusitis Spinal stenosis of cervical region Stress incontinence (female) (male) Trigger finger, right middle finger Surgical History Surgical History History of bladder suspension procedure History of excision of lesion excision of anal skin tag 02/09/22 History of hysterectomy History of laparoscopic cholecystectomy 10/23/19 History of tonsillectomy Family History Family History Father Diabetes mellitus Family history of bipolar disorder Family history of gastrointestinal disorder Hypertension Grandparent Hypertension Family history of malignant neoplasm of breast, Onset Age: 77 Family history of malignant neoplasm Family history of malignant neoplasm of breast in first degree relative Mother Family history of malignant neoplasm Family history of thyroid disease Family history of malignant melanoma Social History Social History Smoking status: Never smoker Alcohol intake: current Alcohol use details: 2/YEAR Substance use: never Substance use type: does not use Living arrangements: with family Occupation/Education: occupation 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 There is no relevant family history pertinent to the presenting complaint Exam Narrative: GENERAL: Well-appearing, well-nourished, and in no acute distress. HEAD: Normocephalic, atraumatic. NECK: Supple. no lymphadenopathy CHEST: Clear to auscultation. No respiratory distress.SAO2 100% on room air HEART: Regular rate and rhythm. No murmur heard. Normal peripheral pulses. ABDOMEN: Soft, nontender, nondistended, normal active bowel sounds. No CVA tenderness, mild dysuria with urination and some low back pain EXTREMITIES: Normal range of motion. No edema. SKIN: Warm, dry, no rash. NEURO: No focal deficits. Alert and oriented x3. Course Course Emergency Course: Patient is aware of diagnosis, understands and agrees to treatment plan.? Anticipatory guidance given.? Patient agrees to follow-up as directed and is aware of reasons to seek care at the emergency department. Portions of this record may have been created with voice recognition software Level of Care: Express Care Visit Vital Signs Vital signs: Vital Signs Temperature 36.1 C L 09/28/24 08:21 Pulse Rate 75 09/28/24 08:21 Respiratory Rate 16 09/28/24 08:21 Blood Pressure 115/72 09/28/24 08:21 Pulse Oximetry 100 09/28/24 08:21 Temperature 36.1 C L 09/28/24 08:21 Pulse Rate 75 09/28/24 08:21 Respiratory Rate 16 09/28/24 08:21 Blood Pressure 115/72 09/28/24 08:21 Pulse Oximetry 100 09/28/24 08:21 MDM - Female Genitourinary MDM Narrative Medical decision making narrative: Exam findings and UA show no acute concerns or changes; patient is non-toxic appearing and is in no distress.? Patient is appropriate for outpatient treatment and follow-up. Differential Diagnosis Differential diagnosis: Likely urinary tract infection, cystitis and other (UTI symptoms) Medical Records Attestation: I reviewed the patient's medical records. Lab Data Attestation: I reviewed the patient's lab results. Lab results narrative: urine dip: glucose negative, bilirubin negative, ketone negative specific gravity less than or equal to 1.005, blood negative, pH 6.0, protein negative, urobilinogen 0.2, nitrate negative, leukocyte negative Critical Care Time Critical Care Time Critical Care Time: No Discharge Plan Discharge Clinical Impression: UTI symptoms Patient Disposition: Home, Self-Care Condition: Stable Instructions: Antibiotic Form, Urinary Tract Infection in Women (ED) Additional Instructions: Increase fluids especially cranberry juice and water Avoid caffeine and carbonated beverages Antibiotic as directed Medicine as directed--cautioned it will cause your urine to be bright orange Tylenol/ibuprofen for pain or fever Follow-up with her primary care provider if further problems or concerns Recheck if you have fever over 101, nausea and vomiting. urine will be sent for culture Prescriptions: New nitrofurantoin monohyd/m-cryst [Macrobid] 100 mg capsule 100 mg PO Q12H 3 Days Qty: 6 0RF Rx Instructions: must administer with a meal/food No Action minoxidil 2.5 mg tablet 2.5 mg PO DAILY omega-3 fatty acids-fish oil 360-1,200 mg capsule 1 cap PO DAILY cholecalciferol (vitamin D3) 50 mcg (2,000 unit) capsule 50 mcg PO DAILY cyanocobalamin (vitamin B-12) 5,000 mcg capsule 5,000 mcg PO [id number] pyridoxine (vitamin B6) 100 mg Tablet 100 mg PO DAILY Follow-up/Referrals: Patricia French MD [Primary Care Provider] - Time of Disposition: 08:42 Quality Wade Coma Scale Eyes: Open Verbal: Oriented and Alert Motor: Follows Commands Wade Coma Total Score: 15
[2024-09-28 09:41] LABS: EDUAAPPEAR Clear; EDUABILI Negative (Negative); EDUABLOOD Negative (Negative); EDUACOLOR1 Light/Pale; EDUAGLUCOSE Negative (Negative); EDUAKETONE Negative (Negative); EDUALEUKO Negative (Negative); EDUANITRATE Negative (Negative); EDUAPROTEIN Negative (Negative); EDUASPGRAVITY 1.005; EDUAUROBILI 0.2
== END 2024-09-28 08:46 | disposition home or self-care (01) ==
PROVIDERS: Emergency Provider Registered Nurse; PCP Family Medicine
DX: R30.0 Dysuria (principal); M54.50 Low back pain, unspecified; M48.02 Spinal stenosis, cervical region; M47.812 Spondylosis without myelopathy or radiculopathy, cervical region
CPT/HCPCS: 81003; 87086; 99213; G0463

== ENCOUNTER 2024-11-02 10:36 | Emergency (ER) | payer OTHER, SELFPAY ==
[2024-11-02 11:25] VITALS: BP 109/73; PULSE 100; RESP 18; TEMP 36.9; O2SAT 100
--- NOTE | 2024-11-02 11:35 | ED_ITS ---
HPI - Skin/Abscess/Foreign Bdy General Chief complaint: Skin/Abscess/Foreign Body Stated complaint: Rash Time Seen by Provider: 11/02/24 11:26 Source: patient and RN notes reviewed Mode of arrival: ambulatory Limitations: no limitations History of Present Illness HPI narrative: Patient presents today complaining of a 2 day history of severely pruritic rash that started on the upper back spread to the mid back, upper and lower chest and abdomen. Patient has tried topical and oral Benadryl but symptoms have worsened since yesterday. She also woke up with a mild sore throat this morning. She had been out of town and sleeping in hotels. States she does have sensitivity to some household products, but has not recently made any changes. Related Data Home Medications ?Medication ?Instructions ?Recorded ?Confirmed ?Last Taken ?Type cholecalciferol (vitamin D3) 50 50 mcg PO DAILY 10/21/19 11/02/24 10/27/19 History mcg (2,000 unit) capsule cyanocobalamin (vitamin B-12) 5,000 mcg PO [id number] 10/21/19 11/02/24 10/27/19 History 5,000 mcg capsule omega-3 fatty acids-fish oil 360 1 cap PO DAILY 10/21/19 11/02/24 10/27/19 Histo ry mg-1,200 mg capsule minoxidil 2.5 mg tablet 2.5 mg PO DAILY 09/28/24 11/02/24 Unknown History Allergies Allergy/AdvReac Type Severity Reaction Status Date / Time neomycin (From Neosporin Allergy Mild Rash Verified 11/02/24 11:38 ([id number])) bacitracin Allergy Unknown Rash Verified 11/02/24 11:38 polymyxin B Allergy Unknown Rash Verified 11/02/24 11:38 Review of Systems Review of Systems: CONSTITUTIONAL: Denies body aches, fever, chills, or sweats. EYES: Denies visual changes, redness, or discharge. ENT: Denies rhinorrhea, congestion, or otalgia.+ sore throat CARDIOVASCULAR: Denies chest pain, palpitations, or edema. RESPIRATORY: Denies cough or dyspnea. GASTROINTESTINAL: Denies abdominal pain, nausea, vomiting, or diarrhea. GENITOURINARY: Denies dysuria or hematuria. SKIN: + pruritic rash MUSCULOSKELETAL: Denies back pain, joint pain, or myalgia. NEUROLOGIC: Denies headache, numbness, tingling, or weakness. PSYCH: Denies depression or anxiety. FORMERLY [facility], [facility] Past Medical History Medical History Sinusitis Stress incontinence (female) (male) Trigger finger, right middle finger Encounter for surgical aftercare following surgery on the digestive system Acalculous cholecystitis Spinal stenosis of cervical region Arthritis of neck Surgical History Surgical History History of excision of lesion excision of anal skin tag 02/09/22 History of laparoscopic cholecystectomy 10/23/19 History of bladder suspension procedure History of hysterectomy History of tonsillectomy Family History Family History Father Diabetes mellitus Family history of bipolar disorder Family history of gastrointestinal disorder Hypertension Grandparent Hypertension Family history of malignant neoplasm of breast, Onset Age: 77 Family history of malignant neoplasm Family history of malignant neoplasm of breast in first degree relative Mother Family history of malignant neoplasm Family history of thyroid disease Family history of malignant melanoma Social History Social History Smoking status: Never smoker Alcohol intake: current Alcohol use details: 2/YEAR Substance use: never Substance use type: does not use Living arrangements: with family Occupation/Education: occupation 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 Please see nursing chart for further information. There is no relevant family history pertinent to the presenting complaint Exam Narrative: GENERAL: Well-appearing, well-nourished, and in no acute distress. HEAD: Normocephalic, atraumatic. EYES: EOMI. No redness or drainage. Conjunctivae normal. ENT: Mucous membranes pink and moist. Nares clear. Throat erythematous posteriorly without edema or exudate. Uvula midline. NECK: Normal AROM. Supple. No lymphadenopathy. CHEST: No respiratory distress. EXTREMITIES: Normal range of motion. No edema. SKIN: Warm, dry. Capillary refill normal. Normal skin turgor. Mildly erythematous macular/faintly raised urticarial rash to the back, upper and lower chest, and lower abdomen. No papules, vesicles, pustules noted. NEURO: No focal deficits. Alert and oriented x3. Gait steady. PSYCH: Normal affect. No signs of depression or anxiety. Course Course Level of Care: Express Care Visit Vital Signs Vital signs: Vital Signs Temperature 98.4 F 11/02/24 11:25 Pulse Rate 100 11/02/24 11:25 Respiratory Rate 18 11/02/24 11:25 Blood Pressure 109/73 11/02/24 11:25 Pulse Oximetry 100 11/02/24 11:25 Oxygen Delivery Room Air 11/02/24 11:25 Temperature 98.4 F 11/02/24 11:25 Pulse Rate 100 11/02/24 11:25 Respiratory Rate 18 11/02/24 11:25 Blood Pressure 109/73 11/02/24 11:25 Pulse Oximetry 100 11/02/24 11:25 Oxygen Delivery Room Air 11/02/24 11:25 Reviewed MDM - Skin/Abscess/Foreign Bdy MDM Narrative Medical decision making narrative: Rapid strep negative. At this time and do not believe patient needs a strep culture. Symptoms are likely due to contact dermatitis. Will treat with prednisone. Anticipatory guidance given. Differential Diagnosis Differential diagnosis: Likely abscess of skin or subcutaneous tissue, urticaria, cellulitis, eczema and contact dermatitis Lab Data Attestation: I reviewed the patient's lab results. Lab results narrative: Rapid strep negative Labs: Lab Results 11/02/24 Range/Units 11:25 POC Grp A Strep Screen Negative (Negative) Critical Care Time Critical Care Time Critical Care Time: No Discharge Plan Discharge Clinical Impression: Contact dermatitis Qualifiers: Contact dermatitis type: unspecified Contact dermatitis trigger: unspecified trigger Qualified Code(s): L25.9 - Unspecified contact dermatitis, unspecified cause Patient Disposition: Home, Self-Care Condition: Stable Instructions: Contact Dermatitis (ED) Additional Instructions: Please take the prednisone as prescribed until gone. Continue an antihistamine for itching if needed. Follow-up with your PCP next week if symptoms are not improving. Patient Language: Macedonian Prescriptions: New prednisone 20 mg tablet 40 mg PO DAILY 5 Days Qty: 10 0RF No Action minoxidil 2.5 mg tablet 2.5 mg PO DAILY omega-3 fatty acids-fish oil 360-1,200 mg capsule 1 cap PO DAILY cholecalciferol (vitamin D3) 50 mcg (2,000 unit) capsule 50 mcg PO DAILY cyanocobalamin (vitamin B-12) 5,000 mcg capsule 5,000 mcg PO [id number] Follow-up/Referrals: Patricia French MD [Primary Care Provider] - Time of Disposition: 11:40
[2024-11-02 11:44] LABS: EDSTREPNEGPOS1 Negative (Negative)
== END 2024-11-02 11:44 | disposition home or self-care (01) ==
PROVIDERS: Emergency Provider Nurse Practitioner; PCP Family Medicine
DX: L25.9 Unspecified contact dermatitis, unspecified cause (principal); M48.02 Spinal stenosis, cervical region; M47.812 Spondylosis without myelopathy or radiculopathy, cervical region
CPT/HCPCS: 87880; 99213; G0463

== ENCOUNTER 2025-04-10 08:11 | Emergency (ER) | payer OTHER, SELFPAY ==
--- NOTE | 2025-04-10 08:14 | ED.URI ---
HPI - URI/Sore Throat General Chief Complaint: Eye Problems Stated Complaint: Eye Irritation/Sinus Source: patient and RN notes reviewed Mode of arrival: ambulatory Limitations: no limitations History of Present Illness HPI Narrative: Patient is a 54-year-old female who presents to the [facility] with complaints of right eye pain, redness, and drainage. States that she woke up this morning with her eye matted shut. She also has complaints of right ear pain. Denies ear drainage. States that she has had sinus pain and pressure since last Monday. She has had nasal congestion and mild intermittent headache. She denies recent fevers. She endorses a frequent nonproductive cough that is rarely productive with green sputum. She denies chest pain or shortness of breath. Her respirations are unlabored. She denies any known sick contacts. Related Data Home Medications ?Medication ?Instructions ?Recorded ?Confirmed ?Last Taken ?Type omega-3 fatty acids-fish oil 360 1 cap PO DAILY 10/21/19 11/08/24 10/27/19 History mg-1,200 mg capsule ergocalciferol (vitamin D2) 10 mcg 20 mcg PO DAILY 11/08/24 11/08/24 Unknown History (400 unit) tablet loratadine 10 mg tablet (Claritin) 10 mg PO DAILY 11/08/24 04/10/25 Unknown History spironolactone 50 mg tablet mg 04/10/25 Unknown History Allergies Allergy/AdvReac Type Severity Reaction Status Date / Time neomycin (From Neosporin Allergy Mild Rash Verified 04/10/25 08:23 ([id number])) bacitracin Allergy Unknown Rash Verified 04/10/25 08:23 polymyxin B Allergy Unknown Rash Verified 04/10/25 08:23 Review of Systems Review of Systems: CONSTITUTIONAL: Denies fever, chills, or sweats. EYES: Denies visual changes, but reports redness or discharge. ENT: Reports right otalgia but denies sore throat. Reports nasal drainage. CARDIOVASCULAR: Denies chest pain, palpitations, or edema. RESPIRATORY: Reports cough but denies dyspnea. GASTROINTESTINAL: Denies abdominal pain, nausea, vomiting, or diarrhea. GENITOURINARY: Denies dysuria or hematuria. SKIN: Denies rash or itching. MUSCULOSKELETAL: Denies back pain, joint pain, or myalgia. NEUROLOGIC: Reports headache but denies numbness or weakness. Pertinent positives per HPI. [facility] Past Medical History Medical History Sinusitis Stress incontinence (female) (male) Trigger finger, right middle finger Encounter for surgical aftercare following surgery on the digestive system Acalculous cholecystitis Spinal stenosis of cervical region Arthritis of neck Surgical History Surgical History History of excision of lesion excision of anal skin tag 02/09/22 History of laparoscopic cholecystectomy 10/23/19 History of bladder suspension procedure History of hysterectomy History of tonsillectomy Family History Family History Father Diabetes mellitus Family history of bipolar disorder Family history of gastrointestinal disorder Hypertension Grandparent Hypertension Family history of malignant neoplasm of breast, Onset Age: 77 Family history of malignant neoplasm Family history of malignant neoplasm of breast in first degree relative Mother Family history of malignant neoplasm Family history of thyroid disease Family history of malignant melanoma Social History Social History Smoking status: Never smoker Alcohol intake: current Alcohol use details: 2/YEAR Substance use: never Substance use type: does not use Living arrangements: with family Occupation/Education: occupation 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 There is no relevant family history pertinent to the patient complaint. Exam Narrative: GENERAL: This is a well-nourished, well-developed patient, in no apparent distress. HEAD: normocephalic, atraumatic. EYES: PERRL. Right sclera injected. Right eye drainage. Vision is grossly intact. EARS: External ears normal. Right TMs erythematous. Hearing grossly intact. NOSE: External nose normal. + congestion. THROAT: Mucous membranes moist, posterior pharynx clear. NECK: Neck supple, non-tender without lymphadenopathy, masses or thyromegaly. CARDIOVASCULAR: Regular rate and rhythm without murmurs, gallops, or rubs. RESPIRATORY: Clear to auscultation. Breath sounds equal bilaterally. No wheezes, rales, or rhonchi. GASTROINTESTINAL: Abdomen soft, non-tender, nondistended. Bowel sounds are active. No hepato-splenomegaly, or palpable masses. No guarding. SKIN: warm, intact with no suspicious lesions or rash, good texture and turgor. NEURO: awake, alert, and oriented to person, place and time. There were no obvious focal neurologic abnormalities. Course Course Level of Care: Express Care Visit Vital Signs Vital signs: Vital Signs Temperature 98.3 F 04/10/25 08:25 Pulse Rate 84 04/10/25 08:25 Respiratory Rate 16 04/10/25 08:25 Blood Pressure 146/78 H 04/10/25 08:25 Pulse Oximetry 100 04/10/25 08:25 Temperature 98.3 F 04/10/25 08:25 Pulse Rate 84 04/10/25 08:25 Respiratory Rate 16 04/10/25 08:25 Blood Pressure 146/78 H 04/10/25 08:25 Pulse Oximetry 100 04/10/25 08:25 Reviewed MDM - URI/Sore Throat MDM Narrative Medical decision making narrative: Your exam today shows Conjunctivitis, You have been given a prescription for eye drops. Use the eye drops as instructed. If you are not better in two (2) days, you need to follow up with an operations and maintenance technician. Do not rub the eye or put anything else in the eye, this can cause abrasions (scratches) on the eye or lead to vision loss. Also it is important not to touch the tube or tip of drops to the eye, as this can cause further infection. Wash your hands very well before instilling the medication. Handwashing can help prevent the spread of disease. Follow up with PCP in 7-10 days Return to ER for problems Contact [facility] if you need an Rn Baby [] Take antibiotics as directed. May given ibuprofen and/or Tylenol as needed for pain and/or fever. Follow up with primary care provider in 7-10 days to have ear rechecked. Go to the ER for any new or worsening symptoms. Avoid smoking/second-hand smoke. Continue to take Tylenol or Motrin for pain. Increase your Vitamin C intake. Use a humidifier or vaporizer at night. Take Medications as prescribed. Drink plenty of water. 8-10 glasses per day. Use flonase 2 times per day for 5 days then as needed Take mucinex 2 times per day and be sure to take with 8oz of water. Follow up with Primary provider if not getting better. Differential Diagnosis Differential diagnosis: Likely upper respiratory infection, otitis media and sinusitis Critical Care Time Critical Care Time Critical Care Time: No Discharge Plan Discharge Clinical Impression: Acute bacterial conjunctivitis of right eye, Acute right otitis media Patient Disposition: Home Condition: Stable Instructions: Antibiotic Form, Sinusitis (ED), Ear Infection (ED), Conjunctivitis (ED) Additional Instructions: Your exam today shows Conjunctivitis, You have been given a prescription for eye drops. Use the eye drops as instructed. If you are not better in two (2) days, you need to follow up with an operations and maintenance technician. Do not rub the eye or put anything else in the eye, this can cause abrasions (scratches) on the eye or lead to vision loss. Also it is important not to touch the tube or tip of drops to the eye, as this can cause further infection. Wash your hands very well before instilling the medication. Handwashing can help prevent the spread of disease. Follow up with PCP in 7-10 days Return to ER for problems Contact [facility] if you need an Rn Baby [] Take antibiotics as directed. May given ibuprofen and/or Tylenol as needed for pain and/or fever. Follow up with primary care provider in 7-10 days to have ear rechecked. Go to the ER for any new or worsening symptoms. Avoid smoking/second-hand smoke. Continue to take Tylenol or Motrin for pain. Increase your Vitamin C intake. Use a humidifier or vaporizer at night. Take Medications as prescribed. Drink plenty of water. 8-10 glasses per day. Use flonase 2 times per day for 5 days then as needed Take mucinex 2 times per day and be sure to take with 8oz of water. Follow up with Primary provider if not getting better. Patient Language: Maltese Prescriptions: New amoxicillin-pot clavulanate 875-125 mg tablet 1 tablet PO Q12H 10 Days Qty: 20 0RF ofloxacin 0.3 % drops 1 drp RIGHT EYE QID Qty: 10 0RF fluticasone propionate [Flonase Allergy Relief] 50 mcg/actuation spray,suspension 1 spray intranasal BID Qty: 16 0RF Rx Instructions: administer into each nostril No Action spironolactone 50 mg tablet omega-3 fatty acids-fish oil 360-1,200 mg capsule 1 cap PO DAILY ergocalciferol (vitamin D2) 10 mcg (400 unit) tablet 20 mcg PO DAILY loratadine [Claritin] 10 mg tablet 10 mg PO DAILY Follow-up/Referrals: Patricia French MD [Primary Care Provider] - Time of Disposition: 08:36
[2025-04-10 08:25] VITALS: BP 146/78; PULSE 84; RESP 16; TEMP 36.8; O2SAT 100
== END 2025-04-10 08:41 | disposition home or self-care (01) ==
PROVIDERS: Emergency Provider Nurse Practitioner; PCP Family Medicine
DX: H10.31 Unspecified acute conjunctivitis, right eye (principal); H66.91 Otitis media, unspecified, right ear; M48.02 Spinal stenosis, cervical region; M47.812 Spondylosis without myelopathy or radiculopathy, cervical region
CPT/HCPCS: 99213; G0463

== ENCOUNTER 2025-04-18 19:19 | Emergency (ER) | payer OTHER, SELFPAY ==
[2025-04-18 19:26] VITALS: BP 132/89; PULSE 116; RESP 16; TEMP 37; O2SAT 99
--- NOTE | 2025-04-18 19:35 | ED_ITS ---
HPI - URI/Sore Throat General Chief Complaint: Upper Respiratory Infection Stated Complaint: Covid Positive Source: patient Mode of arrival: ambulatory Limitations: no limitations History of Present Illness HPI Narrative: Patient is a 54-year-old female who presents to the clinic with complaints of a positive at home COVID test. She states that her symptoms started this morning. She states that someone in her household currently is COVID positive as well. She has not been taking anything [id number]. Denies any shortness of breath, difficulty swallowing, fever, body aches, or chills. Related Data Home Medications ?Medication ?Instructions ?Recorded ?Confirmed ?Last Taken ?Type omega-3 fatty acids-fish oil 360 1 cap PO DAILY 10/21/19 11/08/24 10/27/19 History mg-1,200 mg capsule ergocalciferol (vitamin D2) 10 mcg 20 mcg PO DAILY 11/08/24 11/08/24 Unknown History (400 unit) tablet loratadine 10 mg tablet (Claritin) 10 mg PO DAILY 11/08/24 04/10/25 Unknown History spironolactone 50 mg tablet mg 04/10/25 Unknown History Allergies Allergy/AdvReac Type Severity Reaction Status Date / Time neomycin (From Neosporin Allergy Mild Rash Verified 04/18/25 19:21 ([id number])) bacitracin Allergy Unknown Rash Verified 04/18/25 19:21 polymyxin B Allergy Unknown Rash Verified 04/18/25 19:21 Review of Systems Review of Systems: CONSTITUTIONAL: Denies body aches, fever, chills, or sweats. EYES: Denies visual changes, redness, or discharge. ENT: Reports rhinorrhea, congestion, sore throat, or otalgia. CARDIOVASCULAR: Denies chest pain, palpitations, or edema. RESPIRATORY: Reports cough. Denies dyspnea. GASTROINTESTINAL: Denies abdominal pain, nausea, or vomiting. Reports diarrhea. GENITOURINARY: Denies dysuria or hematuria. SKIN: Denies rash, itching, or wounds. MUSCULOSKELETAL: Denies back pain, joint pain, or myalgia. NEUROLOGIC: Denies numbness, tingling, or weakness. Reports headache. PSYCH: Denies depression or anxiety. All systems reviewed & are unremarkable except as noted in HPI and below PMFSH Past Medical History Medical History Sinusitis Stress incontinence (female) (male) Trigger finger, right middle finger Encounter for surgical aftercare following surgery on the digestive system Acalculous cholecystitis Spinal stenosis of cervical region Arthritis of neck Surgical History Surgical History History of excision of lesion excision of anal skin tag 02/09/22 History of laparoscopic cholecystectomy 10/23/19 History of bladder suspension procedure History of hysterectomy History of tonsillectomy Family History Family History Father Diabetes mellitus Family history of bipolar disorder Family history of gastrointestinal disorder Hypertension Grandparent Hypertension Family history of malignant neoplasm of breast, Onset Age: 77 Family history of malignant neoplasm Family history of malignant neoplasm of breast in first degree relative Mother Family history of malignant neoplasm Family history of thyroid disease Family history of malignant melanoma Social History Social History Smoking status: Never smoker Alcohol intake: current Alcohol use details: 2/YEAR Substance use: never Substance use type: does not use Living arrangements: with family Occupation/Education: occupation 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 Please see nursing chart for further information. There is no relevant family history pertinent to the presenting complaint. Exam Narrative: GENERAL: Well-appearing, well-nourished, and in no acute distress. EYES: EOMI. No redness or drainage. Conjunctivae normal. ENT: Mucous membranes pink and moist. Nares clear. No rhinorrhea. TMs normal bilaterally. No Throat Erythema or tonsillar exudate, uvula midline. NECK: Normal AROM. Supple. No lymphadenopathy. CHEST: No respiratory distress. Clear to auscultation. HEART: Regular rate and rhythm. No murmur appreciated. Normal peripheral pulses. ABDOMEN: Soft, nontender, nondistended, normal active bowel sounds. SKIN: Warm, dry, no rash. Capillary refill normal. Normal skin turgor. NEURO: No focal deficits. Alert and oriented x3. Gait steady. PSYCH: Normal affect. No signs of depression or anxiety. Course Course Level of Care: Express Care Visit Vital Signs Vital signs: Vital Signs Temperature 98.6 F 04/18/25 19:26 Pulse Rate 116 H 04/18/25 19:26 Respiratory Rate 16 04/18/25 19:26 Blood Pressure 132/89 04/18/25 19:26 Pulse Oximetry 99 04/18/25 19:26 Temperature 98.6 F 04/18/25 19:26 Pulse Rate 116 H 04/18/25 19:26 Respiratory Rate 16 04/18/25 19:26 Blood Pressure 132/89 04/18/25 19:26 Pulse Oximetry 99 04/18/25 19:26 MDM - URI/Sore Throat MDM Narrative Medical decision making narrative: Discussed physical exam findings. Advised supportive measures and signs/symptoms to go to the ER. Pt is appropriate for outpt treatment and follow up. Differential Diagnosis Differential diagnosis: Likely upper respiratory infection, sinusitis, viral infection, bronchitis and other (covid) Critical Care Time Critical Care Time Critical Care Time: No Discharge Plan Discharge Clinical Impression: Positive self-administered antigen test for COVID-19 Patient Disposition: Home Condition: Stable Instructions: Antibiotic Form, COVID-19 (Coronavirus Disease 2019) (ED) Additional Instructions: Recommend Flonase spray and Zyrtec (or Claritin/Sabrina) over the counter Cough syrup may cause drowsiness; avoid driving or take it at night time. Tylenol every 8 hours as needed for pain Symptomatic treatment includes: rest, fluids, and increase humidity of the air at home. Follow up with your primary care provider in 1 week. Go to the ER for worsening symptoms or concerns. Patient Language: Portuguese Prescriptions: No Action spironolactone 50 mg tablet amoxicillin-pot clavulanate 875-125 mg tablet 1 tablet PO Q12H 10 Days Qty: 20 0RF ofloxacin 0.3 % drops 1 drp RIGHT EYE QID Qty: 10 0RF fluticasone propionate [Flonase Allergy Relief] 50 mcg/actuation spray,suspen sherman 1 spray intranasal BID Qty: 16 0RF Rx Instructions: administer into each nostril omega-3 fatty acids-fish oil 360-1,200 mg capsule 1 cap PO DAILY ergocalciferol (vitamin D2) 10 mcg (400 unit) tablet 20 mcg PO DAILY loratadine [Claritin] 10 mg tablet 10 mg PO DAILY Follow-up/Referrals: PHYSICIAN,INSPECTOR PROCESS [Primary Care Provider] - Stand Alone Forms: Work/School Release IP Time of Disposition: 19:36
== END 2025-04-18 19:41 | disposition home or self-care (01) ==
DX: U07.1 COVID-19 (principal); M48.02 Spinal stenosis, cervical region
CPT/HCPCS: 99211; G0463

== ENCOUNTER 2025-05-24 16:24 | Emergency (ER) | payer OTHER, SELFPAY ==
--- NOTE | ~2025-05-24 | XR_ITS ---
EXAM: XR finger 5th RT min 2V DATE: 05/24/2025 16:47 HISTORY: injury pain to dip . COMPARISON: None available. FINDINGS: Osteopenia. Avulsion fracture at the dorsal and proximal aspect of the right fifth distal phalanx, with significant distraction. No lytic or blastic lesion. Mild scattered degenerative change s. No erosion or periosteal change. Soft tissues within normal limits. IMPRESSION: Distracted mallet type avulsion fracture at the right fifth DIP. Reviewed, dictated and finalized at location K.
--- NOTE | 2025-05-24 16:32 | ED.UPPEXIN ---
HPI - Extremity Injury (Upper) General Chief Complaint: Extremity Injury, Upper Stated Complaint: Right Little Finger Injury Source: patient Mode of arrival: ambulatory Limitations: no limitations History of Present Illness HPI narrative: 54-year-old female presented for complaint of pain, bruising, and swelling to the right little finger following an injury today. She states today at 11:45 a.m. she [place] water park opening a rental locker, when she caught the finger inside of the handle piece. Pt was seen by the First Aid at the park, the finger was wrapped but continued to bruise and swell. Says it appears bent and cannot tolerate straightening it. Has not taken anything for pain. Related Data Home Medications ?Medication ?Instructions ?Recorded ?Confirmed ?Last Taken ?Type omega-3 fatty acids-fish oil 360 1 cap PO DAILY 10/21/19 11/08/24 10/27/19 History mg-1,200 mg capsule ergocalciferol (vitamin D2) 10 mcg 20 mcg PO DAILY 11/08/24 11/08/24 Unknown History (400 unit) tablet loratadine 10 mg tablet (Claritin) 10 mg PO DAILY 11/08/24 04/10/25 Unknown History spironolactone 50 mg tablet mg 04/10/25 Unknown History Allergies Allergy/AdvReac Type Severity Reaction Status Date / Time neomycin (From Neosporin Allergy Mild Rash Verified 05/24/25 16:38 ([id number])) bacitracin Allergy Unknown Rash Verified 05/24/25 16:38 polymyxin B Allergy Unknown Rash Verified 05/24/25 16:38 Review of Systems Review of Systems: CONSTITUTIONAL: Denies body aches, fever, chills EYES: Denies visual changes ENT: Denies rhinorrhea, congestion CARDIOVASCULAR: Denies chest pain, palpitations, or edema. RESPIRATORY: Denies cough or dyspnea. SKIN: Denies rash, itching, or wounds. MUSCULOSKELETAL: reports right little finger pain NEUROLOGIC: Denies headache, numbness, tingling, or weakness. All systems reviewed & are unremarkable except as noted in HPI and below PMFSH Past Medical History Medical History Sinusitis Stress incontinence (female) (male) Trigger finger, right middle finger Encounter for surgical aftercare following surgery on the digestive system Acalculous cholecystitis Spinal stenosis of cervical region Arthritis of neck Surgical History Surgical History History of excision of lesion excision of anal skin tag 02/09/22 History of laparoscopic cholecystectomy 10/23/19 History of bladder suspension procedure History of hysterectomy History of tonsillectomy Family History Family History Father Diabetes mellitus Family history of bipolar disorder Family history of gastrointestinal disorder Hypertension Grandparent Hypertension Family history of malignant neoplasm of breast, Onset Age: 77 Family history of malignant neoplasm Family history of malignant neoplasm of breast in first degree relative Mother Family history of malignant neoplasm Family history of thyroid disease Family history of malignant melanoma Social History Social History Smoking status: Never smoker Alcohol intake: current Alcohol use details: 2/YEAR Substance use: never Substance use type: does not use Living arrangements: with family Occupation/Education: occupation 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 Please see nursing chart for further information. There is no relevant family history pertinent to the presenting complaint Exam Narrative: GENERAL: Well-appearing CHEST: Speaks in full sentences. No respiratory distress. HEART: Regular rate and rhythm. Normal and equal peripheral pulses. EXTREMITIES: Right 5th digit has bruising and mild swelling to middle and distal phalanx, tender to DIP and PIP, involuntary flexion at the DIP is noted, unable to fully extend. Digit has normal strength and sensation, No open wounds. pulse palpable and equal bilaterally, skin warm, dry, pink. Capillary refill less than 3 seconds. SKIN: Warm, dry, no rash. NEURO: Alert and oriented x3. PSYCH: Normal mood and affect Course Course Emergency Course: Patient is aware of diagnosis, understands and agrees to treatment plan. Anticipatory guidance given. Patient agrees to follow-up as directed and is aware of reasons to seek care at the emergency department. Portions of this record may have been created with voice recognition software Level of Care: Express Care Visit Vital Signs Vital signs: Vital Signs Temperature 98.2 F 05/24/25 16:33 Pulse Rate 98 05/24/25 16:33 Respiratory Rate 16 05/24/25 16:33 Blood Pressure 134/77 05/24/25 16:33 Pulse Oximetry 100 05/24/25 16:33 Temperature 98.2 F 05/24/25 16:33 Pulse Rate 98 05/24/25 16:33 Respiratory Rate 16 05/24/25 16:33 Blood Pressure 134/77 05/24/25 16:33 Pulse Oximetry 100 05/24/25 16:33 Reviewed MDM - Extremity Injury (Upper) MDM Narrative Medical decision making narrative: Discussed physical exam findings and xray. metal finger splint applied. Advised supportive measures and signs/symptoms to go to the ER. Pt is appropriate for outpt treatment and f/u. Differential Diagnosis Differential diagnosis: Likely finger sprain, dislocation of finger and other (finger fracture, finger contusion) Imaging Data Radiologist's impression: Patient: Florence Colon : 1970 MR#: [id number] Age: 54 Acct:[id number] Loc: [id number] ADM Date: 05/24/25Attending Dr: EXAM: XR finger 5th RT min 2V DATE: 05/24/2025 16:47 HISTORY: injury pain to dip . COMPARISON: None available. FINDINGS: Osteopenia. Avulsion fracture at the dorsal and proximal aspect of the right fifth distal phalanx, with significant distraction. No lytic or blastic lesion. Mild scattered degenerative changes. No erosion or periosteal change. Soft tissues within normal limits. IMPRESSION: Distracted mallet type avulsion fracture at the right fifth DIP. Discharge Plan Discharge Clinical Impression: Finger fracture, right Patient Disposition: Home Condition: Stable Instructions: Finger Fracture (ED), Splint Care (ED) Additional Instructions: Rest, ice and elevate the hand Motrin 600mg every 8 hours, as needed, for pain (take with food). Tylenol 1000mg every 8 hours. Keep splint clean, dry and in place Go to the ER immediately for increased pain, tingling/numbness, swelling, redness, and fever Follow up with PCP or hand specialist as needed; call for an appointment. Patient Language: Cape Verdean Prescriptions: No Action spironolactone 50 mg tablet fluticasone propionate [Flonase Allergy Relief] 50 mcg/actuation spray,suspension 1 spray intranasal BID Qty: 16 0RF Rx Instructions: administer into each nostril omega-3 fatty acids-fish oil 360-1,200 mg capsule 1 cap PO DAILY ergocalciferol (vitamin D2) 10 mcg (400 unit) tablet 20 mcg PO DAILY loratadine [Claritin] 10 mg tablet 10 mg PO DAILY Follow-up/Referrals: Thuy Pike RESEARCH AND EVALUATION ANALYST-C [Primary Care Provider] - Time of Disposition: 17:10
[2025-05-24 16:33] VITALS: BP 134/77; PULSE 98; RESP 16; TEMP 36.8; O2SAT 100
== END 2025-05-24 17:12 | disposition home or self-care (01) ==
PROVIDERS: Emergency Provider Nurse Practitioner Family; PCP Nurse Practitioner Family
DX: S62.636A Displaced fracture of distal phalanx of right little finger, initial encounter for closed fracture (principal); W23.0XXA Caught, crushed, jammed, or pinched between moving objects, initial encounter; M48.02 Spinal stenosis, cervical region; M47.812 Spondylosis without myelopathy or radiculopathy, cervical region
CPT/HCPCS: 29130; 73140; 99214; G0463

== ENCOUNTER 2025-10-13 07:14 | Emergency (ER) | payer OTHER, SELFPAY ==
--- OUTSIDE RECORDS SUMMARY | 2024-10-07 09:45 | XMS_ITS ---
Author Organization [facility] kirsten Address [address] [place] [address] Care Team Providers Care Grinder Gear Name Role Phone Manolo CLARK, Patricia Primary Care Provider Unav Leticia Simmons Unavailable [phone] REASON FOR VISIT 6 month f/u +RAQUEL Encounters Encounter Location Date Provider Diagnosis [facility] [address] [place] [address] 10/07/2024 Leticia Barrera Plan Of Treatment No Information Progress Notes * [place] COLONOB:1970 (55 yo F)Acc No.[id number]:10/07/2024 Progress Notes Patient: Florence BARILLAS Appointment Provider: Darrel BARRERA MD :1970 A ge:54 Y S ex:Female Date:10/07/2024 Address[address] [facility] Pcp:Patricia French MD Subjective: * Chief Complaints: * 1 . 6 month f/u +RAQUEL. * Medical History: Objective: * Vitals: Assessment: Plan: * Treatment: * Billing Information: * Visit Code: * Procedure Codes: * Electronic signature of Leticia Barrera MD on 10/13/2025 at 07:16 AM EDITOR MANAGING NEWSPAPER Sign off status: Pending * Appointment Provider: Darrel BARRERA MD Date: 12/07/2023 Generated for Printi ng/Faxing/eTransmitting on: 12/13/2024 07:16 AM EDITOR MANAGING NEWSPAPER
--- OUTSIDE RECORDS SUMMARY | 2025-07-28 09:30 | XMS_ITS ---
Author Organization [facility] kirsten Address [address] [place] [address] Care Team Providers Care Preschool Education Director Name Role Phone Manolo CLARK, Patricia Primary Care Provider Unav Leticia Simmons Unavailable [phone] REASON FOR VISIT yd/6 month follow up/flc Encounters Encounter Location Date Provider Diagnosis [facility] [address] [facility] [address] [place] [address] 07/28/2025 Leticia Barrera Plan Of Treatment No Information Progress Notes * La COLONOB:1970 (55 yo F)Acc No.[id number]:07/28/2025 Progress Notes Patient: Florence BARILLAS Appointment Provider: Darrel BARRERA MD :1970 A ge:54 Y S ex:Female Date:07/28/2025 Address:[address] [facility] [address] [facility] Pcp:Patricia French MD Subjective: * Chief Complaints: * 1 . Yd/6 month follow up/flc. * Medical History: Objective: * Vitals: Assessment: Plan: * Treatment: * Billing Information: * Visit Code: * Procedure Codes: * Electronic signature of Leticia Barrera MD on 10/13/2025 at 07:16 AM ICU REGISTERED NURSE Sign off status: Pending * Appointment Provider: Darrel BARRERA MD Date: 0 07/28/2025 Generated for Printi ng/Faxing/eTransmitting on: 12/13/2024 07:16 AM ICU REGISTERED NURSE
[2025-10-13] VITALS (12 sets, daily range): BP systolic 109–139; BP diastolic 55–69; PULSE 75–104; RESP 10–20; O2SAT 96–98
--- NOTE | ~2025-10-13 | XR_ITS ---
Examination: XR chest 2V Clinical History: chest pain X 2 DAYS Comparison: None Technique: PA and Lateral Findings: Cardiomediastinal silhouette normal size and configuration. Lungs clear. No acute bony abnormality. IMPRESSION: 1. No acute cardiopulmonary findings. Reviewed, dictated and finalized at location R. 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
--- NOTE | 2025-10-13 07:15 | ECG_ITS ---
Test Date: 2025-10-13 07:24:01 Measurements Intervals [place] Rate: 96 P: 55 NH: 179 QRS: 11 QRSD: 87 T: 52 QT: 343 QTc: 435 Interpretive Statements SINUS RHYTHM NORMAL ECG No previous ECG available for comparison Electronically Signed On 10-13-2025 13:52:07 STATISTICAL GENETICIST by Aldo Brian M.D.
--- OUTSIDE RECORDS SUMMARY | 2025-10-13 07:16 | XMS_ITS | Clinical Summary ---
Author Organization [facility] Javier dawson [place] Address [address] [place] [address] Phone Care Team Providers Care Pillow Cleaner Name Role Phone Patricia French MD Primary Care Provider [phone] Allergies No known active allergies Medications OMEGA-3 FATTY ACIDS (FISH OIL ORAL)Indications :Abnormal mammogram Take by mouth. Active VITAMIN E ORALIndications: Abnormal mammogram Take by mouth. Active VITAMIN A ORALIndications: Abnormal mammogram Take by mouth. Active Active Problems Patient Care Coordination No te Formatting of this note migh t be different from the original. Primary Care: Patricia French MD Referring Provider: Sam Bueno MD [address] [facility] [address] [place] [address] Other: Problem Noted Date Diagnosed Date Abnormal mammogram, unspecified 11/23/2012 Encounters Date Type Department Care Team Description 2025 External Device Data STL ABSTRACTION Provider, Abstract 07/22/2025 10:19 AM CDT - 07/22/2025 11:59 PM CDT Hospital Encounter [facility] [address] [place] [id number] Patricia French MD Discharge Disposition: Home or Self Care from Last 3 Months Family History Medical History Relation Name Comments Diabetes Father Diabetes Maternal Grandfather Breast Cancer Maternal Grandmother Diabetes Paternal Grandfather Heart Attack Paternal Grandfather Ovarian Cancer Neg Hx Relation Name Status Comments Father Maternal Grandfather Maternal Grandmother Paternal Grandfather Social History Tobacco Use Types Packs/Day Years Used Date Smoking Tobacco: Never Smokeless Tobacco: Never Alcohol Use Standard Drinks/Week Comments Yes 0 (1 standard drink = 0.6 oz pur e alcohol) moderate Comments No Sex and Gender Information Value Date Recorded Sex Assigned at Female 07/15/2025 7:29 PM CDT Legal Sex Female 3:07 PM [employer] Gender Identity Female 07/15/2025 7:29 PM CDT Sexual Orientation Not on file Occupation Industry Job Start Date Job End Date Not on file Not on file Not on file Not on file Last Filed Vital Signs Vital Sign Reading Time Taken Comments Blood Pressure 119/77 11/21/2012 10:35 AM [employer] Pulse 92 11/21/2012 10:35 AM [employer] Temperature - - Respiratory Rate - - Oxygen Saturation - - Inhaled Oxygen Concentration - - Weight 62.1 kg (137 lb) 11/21/2012 10:35 AM [employer] Height 152.4 cm (5') 11/21/2012 10:35 AM [employer] Body Mass Index 26.76 11/21/2012 10:35 AM [employer] Plan of Treatment Health Maintenance Due Date Last Done Comments DTAP/TDAP/TD VACCINES (1 - Tdap) 1990 HEPATITIS B VACCINES (1 of 3 - 19+ 3-dose series) 1990 HPV/Cotest (21-29) 1992 CERVICAL CANCER SCREENING 2001 HPV/Cotest (30-65) 2001 PAP SMEAR 2001 FIT-DNA Q 3 years 2016 FIT/FOBT Q 1 year 2016 Flex Sig/CT Colonography Q 5 years 2016 ZOSTER VACCINE (1 of 2) 2021 INFLUENZA VACCINE (#1) 2025 10/30/2019 BREAST CANCER SCREENING 07/22/2026 07/22/20 25, 07/18/2024, 07/17/2023, Additional history exists COLORECTAL SCREENING 04/11/2029 04/11/2019 Colorectal Cancer Screening 04/11/2029 Procedures Procedure Name Priority Date/Time Associated Diagnosis Comments MAMMO 3D COSME SCREEN BILAT W OR WO CAD Routine 07/22/2025 10:36 AM CDT Visit for screening mammogram from Last 3 Months Results * MAMMO 3D COSME SCREEN BILAT W OR WO CAD (07/22/2025 10:36 AM CDT) Anatomical Region Laterality Modality Breast Bilateral Mammography 07/22/2025 10:3 6 AM CDT Impressions 07/22/2025 11:18 AM CDT IMPRESSION: No mammographic evidence of malignancy in either breast. OVERALL FINAL ASSESSMENT: BI-RADS CATEGORY 1: Negative. RECOMMENDATION: Annual screening mammography. DICTATION LOCATION: [facility] 07/22/2025 11:18 AM CDT BILATERAL SCREENING DIGITAL MAMMOGRAM WITH 3D TOMOSYNTHESIS AND CAD DATE: 07/22/2025 10:36 AM HISTORY: Routine screening. TECHNIQUE: Full-field digital craniocaudal and mediolateral oblique projections of both breasts were obtained. Low-dose full-field digital breast tomosynthesis examination was performed with 2D and 3D acquisitions. Examination is read in conjunction with computer aided detection. COMPARISON: 07/18/2024 and additional prior studies dating back to 2019 BREAST COMPOSITION: There are scattered areas of fibroglandular density. FINDINGS: There is no suspicious mass, suspicious microcalcifications, or architectural distortion suggestive of malignancy in either breast. Computer aided detection was utilized. us Patricia French MD MAMMO ORDERABLES Final Resu lt from Last 3 Months Insurance [address] [place] [address] [facility] [id number] Care Teams Pillow Cleaner Relationship Specialty Start Date End Date Patricia French MD PCP - General Family Practice 11/21/12
--- OUTSIDE RECORDS SUMMARY | 2025-10-13 07:16 | XMS_ITS | Patient Health Record ---
Author Organization [facility] kirsten Address [address] [place] [address] Care Team Providers Care Printed Circuit Board Pcb Designer Name Role Phone Manolo CLARK, Patricia Primary Care Provider Unav ailable Leticia Montes Unavailable [phone] Allergies No Known Allergies Results Component Value Reference Range Notes UA, reflex Micro to Culture Reviewed date:01/27/2025 09:34:50 PM Interpretation: Performing Lab:[facility] , [facility]. [place] [address] Notes/Report: Color, Ur Straw Yellow Clarity, Ur Clear Clear Spec Grav, Ur 1.004 1.003-1.03 pH, Ur 7.0 Interpretive Data ?Urine pH is affected by diet, medications, systemic acid-base disturbances, and renal tubular function. pH may affect urinary stone formation. For example, urine pH below 6.0 may help reduce the tendency for calcium phosphate stones and pH greater than 6.0 may reduce the tendency for uric acid stone formation. Source: [facility] Current Interpretive Data was last revised on 2017 Protein, Ur Ql Negative Negative Glucose, Ur Ql Negative Negative Ketones, Ur Negative Negative Bilirubin, Ur Negative Negative Blood, Ur Negative Negative Urobilinogen, Ur <2.0 <2.0 mg/dL Nitrite, Ur Negative Negative Leukocyte Esterase, Ur Negative Negative UA reflex comment See Below Reflex con ditions for microscopic UA and culture not met. SSB Ab Reviewed date:01/28/2025 05:11:15 PM Interpretation: Performing Lab:[facility] , [address] [facility] [place] [address] Notes/Report: SS B Antibody <0.2 <=0.9 Ab Index Interpretive Data Negative: < 1.0 Ab Index Positive: > or = 1.0 Ab Index Current interpretive data was last revised on 2017. SSA Ab Reviewed date:01/28/2025 05:11:15 PM Interpretation: Performing Lab:[facility] , [address] [place] [address]. [facility] [address] Notes/Report: SS A Antibody <0.2 <=0.9 Ab Index Interpretive Data Negative: < 1.0 Ab Index Positive: > or = 1.0 Ab Index Current interpretive data was last revised on 2017. Ruiz Ab. Reviewed date:01/28/2025 05:11:15 PM Interpretation: Performing Lab:[facility] , [address] [place] [address]. [facility] [address] Notes/Report: Ruiz Antibody <0.2 <=0.9 Ab Index Interpretive Data Negative: < 1.0 Ab Index Positive: > or = 1.0 Ab Index Current interpretive data was last revised on 2017. Sed Rate Reviewed date:01/27/2025 09:34:50 PM Interpretation: Performing Lab:[facility] , [address] [place] [address]. [facility] [address] Notes/Report: ESR 8 1-30 mm/hr SCL 70 Antibodies Reviewed date:01/28/2025 05:11:15 PM Interpretation: Performing Lab:[facility] , [address] [place] [address]. [facility] [address] Notes/Report: Scl 70 Ab, IgG <0.2 <=0.9 Ab Index Interpretive Data Negative: < 1.0 Ab Index Positive: > or = 1.0 Ab Index Current interpretive data was last revised on 2017. Ribonuclear Protein (ARMATURE VARNISHER) Ab Reviewed date:01/28/2025 05:11:15 PM Interpretation: Performing Lab:[facility] , [address] [place] [address]. [facility] [address] Notes/Report: ARMATURE VARNISHER Antibody 0.2 <=0.9 Ab Index Interpretive Data Negative: < 1.0 Ab Index Positive: > or = 1.0 Ab Index Current interpretive data was last revised on 2017. Rheumatoid Factor Reviewed date:01/28/2025 07:17:29 AM Interpretation: Performing Lab:[facility] , [facility]. [place] [address] Notes/Report: RF, Andrey <10 <=15 IUnits/mL DS DNA Reviewed date:01/28/2025 05:11:15 PM Interpretation: Performing Lab:[facility] , [facility]. [place] [address] Notes/Report: Double Stranded DNA, Andrey 1.0 <=4.0 IUnits/mL Interpretive Data Negative: < or = 4 IUnits/mL Indeterminate: 5 - 9 IUnits/mL Positive: > or = 10 IUnits/mL Current interpretive data was last revised on 2017. Creatine Kinase Reviewed date:01/28/2025 07:17:05 AM Interpretation: Performing Lab:[facility] , [address] [place] [address]. [facility] [address] Notes/Report: Total CK 57 30-200 Units/L Comprehensive metabolic pane l (CMP) Reviewed date:01/28/2025 07:17:44 AM Interpretation: Performing Lab:[facility] , [facility]. [place] [address] Notes/Report: Sodium 142 135-145 mmol/L Plasma Potassium 3.7 3.3-4.9 mmol/L Chloride 106 97-110 mmol/L Total CO2 24 22-32 mmol/L Anion Gap 12 2-15 mmol/L BUN 18 6-25 mg/dL Creatinine 0.58 0.60-1.10 mg/dL Glucose 84 70-199 mg/dL Interpretive Data Fasting glucose >/= 126 mg/dl is diagnostic for diabetes. Fasting is defined as no caloric intake for at least 8 hours. Fasting glucose between 100 mg/dl to 125 mg/dl is diagnostic of prediabetes. In a patient with classic symptoms of hyperglycemia or hyperglycemic crisis, a random glucose >/= 200 mg/dl is diagnostic for diabetes. In the absence of unequivocal hyperglycemia, results should be confirmed by repeat testing. The classification and Diagnosis of Diabetes Diabetes Care 202; 46: S19-S40. Current interpretive data was last revised 2022. Total Calcium 9.4 8.5-10.3 mg/dL Total Bilirubin 0.3 0.1-1.2 mg/dL Plasma Total Protein 7.0 6.5-8.5 g/dL Albumin 4.4 3.5-5.0 g/dL Alkaline Phosphatase 85 40-130 Units/L ALT 18 7-45 Units/L AST 19 10-45 Units/L Complement C4 Reviewed date:01/28/2025 07:17:13 AM Interpretation: Performing Lab:[facility] , [address] [place] [address]. [facility] [address] Notes/Report: Complement, C4 28 10-40 mg/dL Complement C3 Reviewed date:01/28/2025 07:17:19 AM Interpretation: Performing Lab:[facility] , [address] [place] [address]. [facility] [address] Notes/Report: Complement, C3 133 90-180 mg/dL CBC w auto diff Reviewed date:01/27/2025 09:34:49 PM Interpretation: Performing Lab:[facility] , [address] [place] [address]. [facility] [address] Notes/Report: WBC 6.0 3.8-9.9 K/cumm Hgb 14.5 11.9-15.5 g/dL Hct 43.8 35.6-45.5 % Platelet Ct 233 150-400 K/cumm MPV 10.3 9.1-12.3 fL RBC 4.74 3.90-5.20 M/cumm MCV 92.4 81.3-96.4 fL MCH 30.6 27.1-33.3 pg MCHC 33.1 32.3-35.7 g/dL RDW CV 11.9 11.1-14.9 % RDW SD 40.9 35.7-48.1 fL NRBC Abs Auto 0.00 0.00-0.01 K/cumm C Reactive Protein Reviewed date:01/28/2025 07:17:23 AM Interpretation: Performing Lab:[facility] , [address] [place] [address]. [facility] [address] Notes/Report: C-Reactive Protein <3.0 <=10.0 mg/L Anti-CCP (Cyclic Citrullinat ed Peptide Ab) Reviewed date:01/28/2025 05:11:15 PM Interpretation: Performing Lab:[facility] , [address] [facility]. [place] [address] Notes/Report: CCP Ab <0.5 <=2.9 units/mL Interpretive data Negative: <3 units/mL Positive: > or equal to 3 units/mL Current interpretive data was last revised on 2017. RAQUEL Ql reflex to Qn Reviewed date:01/28/2025 05:11:05 PM Interpretation:Lab Result Generalized Performing Lab:[facility] , [address] [place] [address]. [place] [address] Notes/Report: RAQUEL, Qual Positive 1:80 Interpretive Data Normal range for RAQUEL Qualitative Antibody = Negative. 1. RAQUEL is performed using indirect immunofluorescence against HEp-2 cells 2. RAQUEL titers are performed on all positive qualitative results. 3. A significantly positive RAQUEL result is defined as a positive nuclear fluorescence at a titer of 1:80 or greater. 4. 15% of normal people above age 65 have significantly positive RAQUEL results. 5% or less of normal people age 65 or under have significantly positive RAQUEL results. Current interpretive data was last revised on 2020. Testing performed by: [facility], [address] [place]., [address] RAQUEL, Andrey 1:80 Testing performed by: [facility], [address] [place]., [address] RAQUEL Pattern 1 Speckled Testing performed by: [facility], [address] [place] [address]., [address] eGFR Reviewed date:01/28/2025 07:17:33 AM Interpretation: Performing Lab:[facility] , [address] [place] [address]. [place] [address] Notes/Report: eGFR >90 >=60 mL/min/1.73 m2 Interpretive Data Reference Interval Normal >/= 90 mL/min/1.73m2 Mildly decreased* 60 - 89 mL/min/1.73m2 Mildly to moderately decreased 45 - 59 mL/min/1.73m2 Moderately to severely decreased 30 - 44 mL/min/1.73m2 Severely decreased 15 - 29 mL/min/1.73m2 Kidney Failure < 15 mL/min/1.73m2 *Relative to young adult level Estimated glomerular filtration rate is determined by the 2020 CKD-EPI equation recommended by the National Kidney Foundation (A Unifying Approach to GFR Estimation: Recommendations of the NKF-ASK Task Force on Reassessing the Inclusion of Race in Diagnosing Kidney Disease, JASN 2020). The CKD-EPI equation should not be used for patients with unstable renal function and has not been validated in children and those over 70. Current interpretive data was last reviewed 2021. Differential Automated Reviewed date:01/27/2025 09:34:49 PM Interpretation: Performing Lab:[facility] , [address] [facility]. [facility] [address] Notes/Report: Neut Abs 3.4 1.5-6.5 K/cumm ImmGran Abs 0.0 0.0-0.1 K/cumm Lymphocyte Abs 2.0 0.8-3.3 K/cumm Esmeralda Abs 0.5 0.2-0.8 K/cumm Eos Abs 0.1 0.0-0.5 K/cumm Baso Abs 0.0 0.0-0.1 K/cumm Neut Pct 56.0 Interpretive Data Percent cell count reference ranges are not reported, since discordance with absolute values may lead to misinterpretation of CBC data. Current Interpretive Data was last revised on 2018. ImmGran Pct 0.2 Interpretive Data Percent cell count reference ranges are not reported, since discordance with absolute values may lead to misinterpretation of CBC data. Current Interpretive Data was last revised on 2018. Lymph Pct 33.2 Interpretive Data Percent cell count reference ranges are not reported, since discordance with absolute values may lead to misinterpretation of CBC data. Current Interpretive Data was last revised on 2018. Esmeralda Pct 8.8 Interpretive Data Percent cell count reference ranges are not reported, since discordance with absolute values may lead to misinterpretation of CBC data. Current Interpretive Data was last revised on 2018. Eos Pct 1.5 Interpretive Data Percent cell count reference ranges are not reported, since discordance with absolute values may lead to misinterpretation of CBC data. Current Interpretive Data was last revised on 2018. Baso Pct 0.3 Interpretive Data Percent cell count reference ranges are not reported, since discordance with absolute values may lead to misinterpretation of CBC data. Current Interpretive Data was last revised on 2018. Reason For Referral No Information Medications Medication SIG (Take, Route, Frequency, Duration) Notes Start Date End Date Status Ibuprofen 800 MG 1 tablet with food o r milk as needed Orally prn Active Triamcinolone Acetonide 0.1 % Active Fish Oil 1200 MG 1 capsule Orally onc e a day; Duration: 30 day(s) Active Vitamin E 400 UNIT 1 tablet Orally two a day Active Minoxidil 2.5 MG 1/2 tablet Orally on ce a day; Duration: 30 day(s) Active Voltaren Arthritis Pain 1 % as directed Externally Active Claritin 10 MG 1 tablet Orally Once a day; Duration: 30 day(s) Active Social History Tobacco Use: Social History Observation Description Date Details (start date - stop date) Never Smoker NA - NA Household Question Answer Notes Marital status: Number of children in household: 1 Tobacco Control (Standard) Question Answer Notes Tobacco use: Nonsmoker Vital Signs Heart Rate 96 /min 01/27/2025 Temperature 98.0 degrees Fahrenheit 01/27/2025 Blood pressure diastolic 82 mm Hg 01/27/2025 Oximetry 99 % 01/27/2025 Height-cm 152.4 cm 01/27/2025 Weight-kg 57.6 kg 01/27/2025 Height 60 in 01/27/2025 Blood pressure systolic 122 mm Hg 01/27/2025 Weight 127.0 lbs 01/27/2025 BMI 24.8 kg/m2 01/27/2025 Encounters Encounter Location Date Provider Diagnosis [facility] [address] [facility] [address] [place] [address] 01/27/2025 Leticia Montes Multiple joint pain M25.50 ; RAQUEL positive R76.8 and Rash R21 Assessments Encounter Date Diagnosis (ICD Code) Assessment Notes Treatment Notes Treatment Clinical Notes Section Notes 01/27/2025 Multiple joint pain (ICD-10 - M25.50) mild rashes and joint aches, will repeat serologies 01/27/2025 Rash (ICD-10 - R21) mild rashes and joint aches, will repeat serologies 01/27/2025 RAQUEL positive (ICD-10 - R76.8) mild rashes and joint aches, will repeat serologies Plan Of Treatment No Information Insurance Providers Payer Name Payer Address Payer Phone Subscriber Number Group Number Insured Name Patient Relationship to Insured Coverage Start Date Coverage End Date [facility] [employer] [address] [address] [place] [address] [id number] Florence Colon Self - patient is the insured Medical (General) History Medical History History ICD Code cholecystitis, cervical spinal stenosis, stress incontinence, trigger finger Surgical History Surgery Date(Month/Year) bladder suspension, anal ski n tag excision, hysterectomy, cholecystectomy, tonsillectomy
--- OUTSIDE RECORDS SUMMARY | 2025-10-13 07:17 | XMS_ITS | Clinical Summary ---
Author Organization [facility] Address [address] [facility] [address] [place] [address] Phone Care Team Providers Care Cleat Blanker Name Role Phone Patricia French MD Primary Care Provider Lise Dumont MD Unavailable Allergies Active Allergy Reactions Criticality Noted Date Comments Neomycin-Bacitracin Zn-Polymyx Rash 02/21 Medications esomeprazole (NEXIUM) 40 MG CAPSULE DELAYED RELEASE 01/08/2019 Active triamcinolone (KENALOG) 0.1 % Cream TRINA THIN LAYER EXT AA 2 TO 3 TIMES QD 0 10/26/2018 Active ALPRAZolam (XANAX) 0.5 MG Tablet TK 1 T PO 30 MINUTES PRIOR TO FLIGHT 0 02/15/2019 Active VITAMIN E PO Take by mouth. Active Cholecalciferol (VITAMIN D PO) Take by mouth. Active BIOTIN 5000 PO Take by mouth. Active Friona-3 Fatty Acids (FISH OIL PO) Take by mouth. Active Friona-3 Fatty Acids (OMEGA 3 PO) Take by mouth. Active Family History Medical History Relation Name Comments Bipolar Disorder Father Diabetes Father Other-comment Father GERD Melanoma Mother Thyroid Disease Mother Relation Name Status Comments Father Alive Mother Alive Social History Tobacco Use Types Packs/Day Years Used Date Smoking Tobacco: Never Smokeless Tobacco: Never Tobacco Cessation:Counseling Given: Yes Alcohol Use Standard Drinks/Week Comments Not Currently 0 (1 standard drink = 0.6 oz pur e alcohol) Comments No Sex and Gender Information Value Date Recorded Sex Assigned at Not on file Legal Sex Female 11:52 AM BED LASTER Gender Identity Not on file Sexual Orientation Not on file Last Filed Vital Signs Vital Sign Reading Time Taken Comments Blood Pressure 102/62 07/31/2019 9:32 AM CDT Pulse 99 07/31/2019 9:32 AM CDT Temperature 37.2 C (99 F) 07/31/2019 9:32 AM CDT Respiratory Rate 15 07/31/2019 9:32 AM CDT Oxygen Saturation 98% 07/31/2019 9:32 AM CDT Inhaled Oxygen Concentration - - Weight 52.9 kg (116 lb 9.6 oz) 07/31/2019 9:32 A M CDT Height 152.4 cm (5') 07/31/2019 9:32 AM CDT Body Mass Index 22.77 07/31/2019 9:32 AM CDT Plan of Treatment Health Maintenance Due Date Last Done Comments Hepatitis C Virus (HCV) Screening 1970 TdaP Immunization 1970 Varicella Immunization (1 of 2 - 13+ 2-dose series) 1984 Hepatitis B Immunization (1 of 3 - 19+ 3-dose series) 1990 Cologuard 2016 Immunochemical Fecal Occult Blood 2016 Pneumococcal Immunization (5 0+ years) (1 of 1 - PCV) 2021 Zoster Immunization (1 of 2) 2021 Influenza Immunization (#1) 2025 SARS-COV-2 Immunization ( - season) 2025 11/16/2021, 02/22/2021, 01/31/2021 Colonoscopy 04/11/2029 04/11/2019 Colorectal Cancer Screening 04/11/2029 Respiratory Syncytial Virus (RSV) Immunization (Adult) (1 - 1-dose 75+ series) 2046 Human Papillomavirus (HPV) Immunization Aged Out No longer eligible b ased on patient's age to complete this topic Meningococcal Immunization (ACWY) Aged Out No longer eligible b ased on patient's age to complete this topic Rotavirus Immunization Aged Out No lo nger eligible based on patient's age to complete this topic Procedures Procedure Name Priority Date/Time Associated Diagnosis Comments COLONOSCOPY Routine 04/11/2019 from Last 3 Months or Most Recently Relevant to Health Maintenance Results * COLONOSCOPY (04/11/2019) us Patricia French MD PROCEDURE/MINOR SURGICAL OR DERABLES Final Result from Last 3 Months or Most Recently Relevant to Health Maintenance Care Teams Cleat Blanker Relationship Specialty Start Date End Date Patricia French MD PCP - General Family Medicine 01/04/19 [place] [id number] [address] Internal Medicine 01/04/19
--- OUTSIDE RECORDS SUMMARY | 2025-10-13 07:17 | XMS_ITS | Clinical Summary ---
Author Organization [facility] [address] Address [address] [place] [address] Care Team Providers Care Candy Packer Name Role Phone Patricia French MD Primary Care Provider + Allergies Active Allergy Reactions Criticality Noted Date Comments Abqozkai-Mrholbqojz-Nsbveaegl Rash Medium 2019 Medications omega 4-czy-aqi-fish oil 300 mg (120 mg- 180mg)-1,000 mg capsule,delayed release(/EC) 9 Active vitamin E (AQUASOL E) 400 unit capsule 0 Active loratadine (Claritin) 10 mg tablet 1 Active triamcinolone (KENALOG) 0.5 % creamIndication s:Chronic eczematous otitis externa of both ears Apply topically 3 (three) times a day 45 g 1 3 Active ibuprofen (ADVIL,MOTRIN) 800 mg tablet 1 tablet with food or milk as needed Orally prn Active spironolactone (ALDACTONE) 50 mg tablet Take 1 tablet (50 mg total) by mouth daily 5 Active Active Problems Problem Noted Date Diagnosed Date Bilateral impacted cerumen 08/26/2025 Assessment & Plan (08/26/2025 1:10 PM CDT): Both ears had very large cerumen impactions and these were removed. She noted improvement in her symptoms afterwards. I recommended a follow up in 6 months. Acalculous cholecystitis 08/12/2025 Acute bacterial conjunctivitis of right eye 07/22 Acute bacterial rhinosinusitis 08/12/2025 Acute otitis externa of right ear 08/12/2025 Acute right otitis media 08/12/2025 Acute serous otitis media of both ears Anal skin tag 08/12/2025 Capsulitis of foot 08/12/2025 Chronic anxiety 08/12/2025 Chronic GERD 08/12/2025 Contact dermatitis 08/12/2025 Cough 08/12/2025 UTI symptoms 08/12/2025 Urinary tract infection 08/12/2025 Upper respiratory infection 08/12/2025 Sinusitis 08/12/2025 Pruritus ani 08/12/2025 Positive self-administered antigen test for COVI D-19 08/12/2025 TMJ arthralgia 08/12/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 She can follow up if her problems continue. Right ear pain 07/24/2024 Chronic eczematous otitis externa of both ears 1 12/05/2021 Assessment & Plan (08/26/2025 1:11 PM CDT): Both ear canals look slightly inflamed but not infected. I recommended continuing with the steroid cream. Follow up in 6 months. Assessment & Plan (10/19/2024 3:40 PM EMBROIDERY SUPERVISOR): I recommended using the steroid ointment twice a day as needed. She could also try using a dandruff shampoo such as T/Gel periodically in the shower. She will give that a try. She is going to follow up with me in about 6 months. Assessment & Plan (04/04/2024 2:58 PM CDT): She seems to benefit a great deal from use of the topical steroid preparation and I recommended to continue using it as she has. Avoid Q-tips. She understands. Assessment & Plan (10/05/2023 6:39 PM EMBROIDERY SUPERVISOR): Things are under control. I recommended using the steroid cream as needed. Follow-up as needed. Assessment & Plan (04/04/2023 10:04 AM CDT): This seems to be pretty stable and controlled using the steroid cream. I recommended continue with that as needed. Assessment & Plan (10/05/2022 9:20 AM EMBROIDERY SUPERVISOR): She has chronic eczema in both ears. Triamcinolone ointment does help and she feels it is pretty effective. I am going to refill that. I am going to change to triamcinolone cream however. Use it twice a day needed. She also has a mild otitis externa on the right side. Going to prescribe Cortisporin suspension. Follow-up in 6 months. See me sooner if needed. Impacted cerumen of right ear 10/05/2022 Assessment & Plan (04/17/2025 7:11 PM CDT): A large amount of cerumen was impacted up against the drum. This was removed under the microscope using several instruments. She tolerated that well. Noted improvement immediately. Assessment & Plan (10/19/2024 3:41 PM EMBROIDERY SUPERVISOR): The right ear was cleaned without difficulty. Tolerated well. Assessment & Plan (04/04/2024 2:59 PM CDT): She had a large cerumen impaction on the right side that was removed and a smaller amount on the left. Again I recommended avoiding Q-tips and apply the steroid cream as needed. I am recommending a follow-up in about 6 months. Assessment & Plan (10/05/2023 6:40 PM EMBROIDERY SUPERVISOR): She had wax on both sides, more on the right. Both ears were cleaned. No need for further intervention. She would prefer to return in about 6 months. She is very happy that things are under much better control. Assessment & Plan (04/04/2023 10:04 AM CDT): She did have a lot of wax buildup on both sides and this was removed. I recommended a follow-up in 6 months. Assessment & Plan (10/05/2022 7:23 PM EMBROIDERY SUPERVISOR): Both ears were cleaned under the microscope. A lot of wax and debris removed on either side. The right side also had moisture and inflammation that was removed. I told her she probably should consider seeing me on every 6 month basis to keep her ears clean and dry. She is agreeable with that. She also will see me sooner if needed. I felt that she probably should not use ear cleaning kits because they may exacerbate these problems. Abnormal mammogram 11/23/2012 Encounters Date Type Department Care Team Description 09/23/2025 9:00 AM EMBROIDERY SUPERVISOR Office Visit [facility] [address] [place] [address] 2nd [address] [place] [address] Everardo Barron MD Mallet finger of right hand (Primary Dx); Pain involving joint of finger of right hand; Hx of fracture of finger 08/26/2025 1:00 PM CDT Office Visit [facility] [address] [place] [address] Kedra Molina MD Chronic eczematous otitis externa of both ears (Primary Dx); Bilateral impacted cerumen 08/12/2025 9:35 AM CDT Therapy [facility] [id number] [place] [address] 1st [address] [place] [id number] Aspen Mcnamara, OT Mallet finger of right hand (Primary Dx) 08/12/2025 9:10 AM CDT Office Visit [facility] [address] [facility] 2nd Floor [address] [place] [address] Everardo Barron MD Mallet finger of right hand (Primary Dx) 07/22/2025 9:35 AM CDT Therapy [facility] [address] [place] [address] 1[address] [place] [address] Janet Meriroger Terry, BARTOLO Mallet finger of right hand (Primary Dx) 07/22/2025 8:30 AM CDT Office Visit [facility] [id number] [place] [address] 2[address] [place] [address] Everardo Barron MD Mallet finger of right hand (Primary Dx); Pain involving joint of finger of right hand from Last 3 Months Surgical History Surgery Date Site/Laterality Comments TONSILLECTOMY PARTIAL HYSTERECTOMY CHOLECYSTECTOMY 10/2019 HYSTERECTOMY 12/2014 (partial) BLADDER SURGERY 12/2014 (tie up for bladder control) Medical History Medical History Date Comments Allergic rhinitis Ear problems Hair loss Family History Medical History Relation Name Comments Alzheimer's disease Father Brandon Cortez Diabetes Father Brandon Cortez Hearing loss Father Brandon Cortez Hypertension Father Brandon Cortez Mental illness Father Brandon Cortez Heart attack Maternal Grandfather Christopher Cortez Obesity Maternal Grandfather Christopher Cortez Cancer Maternal Grandmother Savannah Prose Hypertension Maternal Grandmother Savannah Prose Vision loss Maternal Grandmother Savannah Prose Alzheimer's disease Mother Lissa Oreillyw Cancer Mother Lissa Cortez Hearing loss Mother Lissa Oreillyw Melanoma Mother Lissa Oreillyw Rashes / Skin problems Mother Lissa Oreillyw Alzheimer's disease Paternal Grandfather Larry Prose Diabetes Paternal Grandfather Larry Prose Hearing loss Paternal Grandfather Larry Prose Alzheimer's disease Paternal Grandmother Nicolle Cortez Obesity Paternal Grandmother Nicolle Cortez Stroke Paternal Grandmother Nicolle Cortez Rashes / Skin problems Sister Katie Helen Relation Name Status Comments Father Brandon Oreillyw Alive Maternal Grandfather Christopher Oreillyw Alive Maternal Grandmother Savannah Prose Mother Lissa Oreillyw Paternal Grandfather Larry Prose Paternal Grandmother Nicolle Cortez Sister aKtie Cervantes Alive Social History Tobacco Use Types Packs/Day Years Used Date Smoking Tobacco: Never Smokeless Tobacco: Never Tobacco Cessation:Counseling Given: Not Answered Alcohol Use Standard Drinks/Week Comments Not Currently 0 (1 standard drink = 0.6 oz pur e alcohol) Personal Safety Answer Date Recorded Have you ever been in or are you currently in a harmful physical or emotional relationship or is someone making you feel afraid or unsafe? Denies 06/03/2025 Comments Unknown Sex and Gender Information Value Date Recorded Sex Assigned at Not on file Legal Sex Female 10:11 AM EMBROIDERY SUPERVISOR Gender Identity Not on file Sexual Orientation Not on file Last Filed Vital Signs Vital Sign Reading Time Taken Comments Blood Pressure 124/82 06/03/2025 11:00 PM CDT Pulse 81 06/03/2025 11:00 PM CDT Temperature 36.7 C (98.1 F) 06/03/2025 6:33 PM CDT Respiratory Rate 18 08/26/2025 1:02 PM CDT Oxygen Saturation 98% 06/03/2025 11:00 PM CDT Inhaled Oxygen Concentration - - Weight 54.4 kg (120 lb) 08/26/2025 1:02 PM CDT Height 152.4 cm (5') 08/26/2025 1:02 PM CDT Body Mass Index 23.44 08/26/2025 1:02 PM CDT Plan of Treatment Health Maintenance Due Date Last Done Comments Colon Cancer Screening-Colonoscopy 1971 Depression Screening 1971 Hepatitis C Screening 1971 Hepatitis B Screening 1989 Regular Well Visit/Exam 18-64 1989 Zoster Vaccine (1 of 2) 2021 Influenza Vaccine (#1) 2025 , 10/28/2021, 08/27/2020, Additional history exists Breast Cancer Screening-Mammogram 07/22/2026 07/22/2025, 07/22/2025, 07/18/2024, Additional history exists DTaP/Tdap/Td Vaccine (3 - Td or Tdap) 03/29/2032 03/29/2022, 03/18/2007 Pneumococcal vaccine <65 Aged Out No longer eligible based on patient's age to complete this topic Insurance [address] [place] [id number] [facility] Care Teams Candy Packer Relationship Specialty Start Date End Date Patricia French MD PCP - General Family Medicine 12/21/18
--- NOTE | 2025-10-13 07:36 | ED.GENADULT ---
HPI - General Adult General Chief complaint: Chest Pain Stated complaint: chest pain Time Seen by Provider: 10/13/25 07:17 History of Present Illness HPI narrative: 55-year-old female presented to the emergency department for evaluation for epigastric pain. Patient states she woke up on Monday night was having some burning epigastric pain which she had initially attributed to some spicy food that she ate that evening. Patient does have a history of GERD but did have approximately 50 lb of weight loss and has not had significant GERD symptoms since then. Patient reports over the last few years she has had weight gain of approximately 20-30 lb. Patient's last EGD was approximately 2018 when she was found to have no active esophagitis or gastritis but did have some previous scar tissue. Does not take omeprazole but does intermittently take Tums. Patient denies any prior cardiac history. Patient states then she woke up this morning she had a recurrence of the epigastric pain and did have some associated burping. Patient reports he does have a nervous affect and she was worried that she would be concerned about the worse case scenario of this chest pain all day so she presented to the emergency department for evaluation. At time of evaluation patient states that the symptoms have resolved. Patient has no prior history of ACS, hypertension, high cholesterol, diabetes. Patient denies any history of exertional chest pain Related Data Home Medications ?Medication ?Instructions ?Recorded ?Confirmed ?Last Taken ?Type omega-3 fatty acids-fish oil 360 1 cap PO DAILY 10/21/19 07/18/25 10/27/19 History mg-1,200 mg capsule loratadine 10 mg tablet (Claritin) 10 mg PO DAILY 11/08/24 07/18/25 Unknown History Vitamin E BYMOUTH 07/18/25 07/18/25 Unknown History ibuprofen 300 mg tablet 600 mg PO ONCE 07/18/25 07/18/25 Unknown History Allergies Allergy/AdvReac Type Severity Reaction Status Date / Time neomycin (From Neosporin Allergy Mild Rash Verified 07/18/25 11:28 ([id number])) bacitracin Allergy Unknown Rash Verified 07/18/25 11:28 polymyxin B Allergy Unknown Rash Verified 07/18/25 11:28 Review of Systems Review of Systems: All systems reviewed & are unremarkable except as noted in HPI and below PMFSH Past Medical History Medical History Sinusitis Stress incontinence (female) (male) Trigger finger, right middle finger Encounter for surgical aftercare following surgery on the digestive system Acalculous cholecystitis Spinal stenosis of cervical region Arthritis of neck Surgical History Surgical History History of excision of lesion excision of anal skin tag 02/09/22 History of laparoscopic cholecystectomy 10/23/19 History of bladder suspension procedure History of hysterectomy History of tonsillectomy Family History Family History Father Diabetes mellitus Family history of bipolar disorder Family history of gastrointestinal disorder Hypertension Grandparent Hypertension Family history of malignant neoplasm of breast, Onset Age: 77 Family history of malignant neoplasm Family history of malignant neoplasm of breast in first degree relative Mother Family history of malignant neoplasm Family history of thyroid disease Family history of malignant melanoma Social History Social History (Updated 07/18/25 @ 10:39 by Janice Lewis CMA) Smoking status: Never smoker Alcohol intake: current Drinks per week: 1 Alcohol use details: 2/YEAR Substance use: never Substance use type: does not use Do You Feel Safe in your Home?: Yes Living arrangements: with family Occupation/Education: occupation 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 HEAD: normocephalic, atraumatic. EYES: PERRLA/EOMI, conjunctivae clear. NOSE: Normal no drainage EARS:TMS clear with good light reflex. THROAT: Pharynx clear, no exudate. NECK: Supple. No adenopathy, no masses. RESPIRATORY: Airway patent, respirations nonlabored. Clear to auscultation bilaterally, no rales, rhonchi, wheezing. CARDIOVASCULAR: Regular rate and rhythm without murmurs rubs or gallops. ABDOMINAL: Soft, nontender, nondistended, normal bowel sounds MUSCULOSKELETAL: Moves all extremities. Strength/ROM intact, No edema, No calf tenderness. NEURO: Alert. Cranial nerves II through XII intact. Good gait. Good coordination SKIN: Warm, dry. Normal Color Course Vital Signs Vital signs: Vital Signs Pulse Rate 104 H 10/13/25 07:19 Respiratory Rate 16 10/13/25 07:19 Blood Pressure 139/67 10/13/25 07:19 Pulse Oximetry 97 10/13/25 07:19 Pulse Rate 79 10/13/25 10:01 Respiratory Rate 20 10/13/25 10:01 Blood Pressure 113/62 10/13/25 10:01 Pulse Oximetry 98 10/13/25 10:01 Oxygen Delivery Room Air 10/13/25 07:30 Medical Decision Making MDM Narrative Medical decision making narrative: S 55-year-old female present to the emergency department for evaluation for epigastric chest pain. Patient is currently afebrile with no leukocytosis hemoglobin of 14.5 patient had INR of 1.1 with no significant acute abnormalities on her CMP negative T bili AST ALT alk-phos and lipase and patient had negative serial troponins. Chest x-ray shows no acute cardiopulmonary abnormality. Serial EKG showed no evidence acute STEMI. Patient was treated with GI cocktail and IV Protonix. On re-evaluation patient states he does feel improved. Patient was encouraged close follow-up with her primary care physician for additional outpatient cardiac testing. All questions concerns were addressed patient was well-appearing at time of discharge. Differential Diagnosis Differential Diagnosis: Gastritis, esophagitis, duodenitis, ACS, pulmonary embolism, pneumonia, pneumothorax Vital Signs Vital Signs: Vital Signs Pulse Rate 104 H 10/13/25 07:19 Respiratory Rate 16 10/13/25 07:19 Blood Pressure 139/67 10/13/25 07:19 Pulse Oximetry 97 10/13/25 07:19 Pulse Rate 79 10/13/25 10:01 Respiratory Rate 20 10/13/25 10:01 Blood Pressure 113/62 10/13/25 10:01 Pulse Oximetry 98 10/13/25 10:01 Oxygen Delivery Room Air 10/13/25 07:30 Lab Data Lab results reviewed: Yes I reviewed the patient's lab results. 10/13/25 07:38 10/13/25 07:38 Labs: Lab Results 10/13/25 10/13/25 Range/Units 07:38 10:28 WBC 4.7 (4.5-10.0) K/mm3 RBC 4.62 (4.2-5.4) M/mm3 Hgb 14.5 (12.0-15.0) g/dL Hct 40.7 (37.0-47.0) % MCV 88.1 (80-100) fl MCH 31.4 (26-34) pg MCHC 35.6 (32-36) g/dl RDW 11.8 (11.5-14.5) % Plt Count 202 (150-375) k/mm3 MPV 9.5 (7.4-10.4) fl Immature Gran % (Auto) 0.4 (0-0.5) % Neut % (Auto) 61.4 (45.5-73.1) % Lymph % (Auto) 25.6 (18.3-44.2) % [place] % (Auto) 9.0 H (2.6-8.5) % Eos % (Auto) 3.2 (0-4.4) % Baso % (Auto) 0.4 (0.2-1.2) % Lymph # (Auto) 1.20 (0.9-3.2) K/mm3 [place] # (Auto) 0.4 (0.1-0.6) K/mm3 Eos # (Auto) 0.2 (0-0.3) K/mm3 Baso # (Auto) 0.0 (0.0-0.1) K/mm3 Abs Immat Gran (auto) 0.02 (0.00-0.031) K/mm3 Absolute Neuts (auto) 2.9 (1.3-6.7) K/mm3 Absolute Nucleated RBC 0.000 (0.0-0.012) K/mm3 Nucleated RBC % 0.0 (0.0-0.2) % PT 13.7 (11.1-14.7) Seconds INR 1.1 APTT 23.7 (22.3-36.8) Seconds Sodium 139 (137-145) mmol/L Potassium 3.8 (3.4-5.0) mmol/L Chloride 108 H (98-107) mmol/L Carbon Dioxide 26 (22-30) mmol/L Anion Gap 5 (4-12) mmol/L BUN 20 H (7-17) mg/dL Creatinine 0.69 L (0.7-1.0) mg/dL Estim Creat Clear Calc 58 ml/min Estimated GFR > 60 (59 - ) Glucose 77 (65-110) mg/dL Calcium 9.3 (8.4-10.2) mg/dL Total Bilirubin 0.6 (0.2-1.3) mg/dL AST 24 (14-36) U/L ALT 13 (6-35) U/L Alkaline Phosphatase 73 (38-126) U/L Troponin I < 0.012 < 0.012 (0.000-0.034) ng/mL Total Protein 6.8 (6.3-8.2) g/dL Albumin 4.2 (3.5-5.1) g/dL Lipase 159 (23-300) U/L Imaging Data My impression: Chest x-ray: No acute cardiopulmonary abnormality Radiologist's impression: Impressions Chest X-Ray 10/13/25 08:15 IMPRESSION: 1. No acute cardiopulmonary findings. Discharge Plan Discharge Clinical Impression: Acute epigastric pain Patient Disposition: Home Condition: Stable Instructions: Antibiotic Form, Chest Pain (ED), Diet for Stomach Ulcers and Gastritis (ED) Additional Instructions: Avoid alcohol and avoid NSAIDs. Follow a bland diet. Take omeprazole daily for the next 14 days. Have close follow-up with GI for additional workup. Have close follow-up with your primary care physician for additional outpatient cardiac testing potentially including a stress test. If you have any worsening symptoms then please call or return to the emergency department. Patient Language: Ivorian Prescriptions: New omeprazole 20 mg capsule,delayed release(DR/EC) 20 mg PO DAILY 14 Days Qty: 14 0RF No Action omega-3 fatty acids-fish oil 360-1,200 mg capsule 1 cap PO DAILY loratadine [Claritin] 10 mg tablet 10 mg PO DAILY ibuprofen 300 mg tablet 600 mg PO ONCE Vitamin E BYMOUTH Proctofoam HC 1-1 % foam 1 applic RECTAL QID PRN (Reason: itching) Qty: 10 0RF spironolactone 50 mg tablet 50 mg PO DAILY Qty: 90 1RF Follow-up/Referrals: Patricia French MD [Primary Care Provider, Family Practice] Robin Pimentel MD [Physician, Gastroenterology] Quality HEART score for chest pain patients History: slightly suspicious ECG: normal Age: > 45 and < 65 years Risk factors: 1 or 2 risk factors Troponin: < or = to 1x normal limit Heart score: 2
[2025-10-13 07:45] LABS: Hematocrit 40.7 % (37.0-47.0); Hemoglobin 14.5 g/dL (12.0-15.0); Immature Granulocyte Percent A 0.4 % (0-0.5); Lymphocytes Absolute Auto 1.20 K/mm3 (0.9-3.2); Mean Corpuscular HGB Conc 35.6 g/dl (32-36); Mean Corpuscular Hemoglobin 31.4 pg (26-34); Mean Corpuscular Volume 88.1 fl (80-100); Nucleated Red Blood Cells Absolute Auto 0.000 K/mm3 (0.0-0.012); Nucleated Red Blood Cells Perc 0.0 % (0.0-0.2); Platelet Count Result 202 k/mm3 (150-375); Red Blood Count 4.62 M/mm3 (4.2-5.4); White Blood Count 4.7 K/mm3 (4.5-10.0)
--- OUTSIDE RECORDS SUMMARY | 2025-10-13 07:49 | XMS_ITS | Clinical Summary ---
Author Organization [facility] Address [address] [facility] [address] [place] [address] Phone Care Team Providers Care Sleever Name Role Phone Patricia French MD Primary [...] BIOTIN 5000 PO Take by mouth. Active [place]-3 Fatty Acids (FISH OIL PO) Take by mouth. 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
--- OUTSIDE RECORDS SUMMARY | 2025-10-13 07:49 | XMS_ITS | Clinical Summary ---
Author Organization [facility]avier dawson [place] Address [address] [place] [address] Phone Care Team Providers Care Lab Courier Name Role Phone Patricia French MD Primary Care Provider [phone] Allergies No known active allergies Medications OMEGA-3 [...] MD Referring Provider: Sam Bueno MD [address] [facility] [address] [place] [address] Other: Problem Noted Date Diagnosed Date Abnormal mammogram, unspecified 11/23/2012 Encounters Date Type Department Care Team Description 2025 External Device Data STL ABSTRACTION Provider, Abstract 07/22/2025 10:19 AM CDT - 07/22/2025 11:59 PM CDT Hospital Encounter [facility] [facility] [address] [place] [address] Patricia French MD Discharge Disposition: Home or [...] PM CDT Legal Sex Female 3:07 PM TELEVISION EQUIPMENT OPERATOR Gender Identity Female 07/15/2025 7:29 PM CDT Sexual Orientation Not on file Occupation Industry Job Start Date Job End Date Not on file Not on file Not on file Not on file Last Filed Vital Signs Vital Sign Reading Time Taken Comments Blood Pressure 119/77 11/21/2012 10:35 AM TELEVISION EQUIPMENT OPERATOR Pulse 92 11/21/2012 10:35 AM TELEVISION EQUIPMENT OPERATOR Temperature - - Respiratory Rate - - Oxygen Saturation - - Inhaled Oxygen Concentration - - Weight 62.1 kg (137 lb) 11/21/2012 10:35 AM TELEVISION EQUIPMENT OPERATOR Height 152.4 cm (5') 11/21/2012 10:35 AM TELEVISION EQUIPMENT OPERATOR Body Mass Index 26.76 11/21/2012 10:35 AM TELEVISION EQUIPMENT OPERATOR Plan of Treatment Health Maintenance Due Date [...] Negative. RECOMMENDATION: Annual screening mammography. DICTATION LOCATION: [facility] 07/22/2025 11:18 AM CDT BILATERAL SCREENING DIGITAL [...] lt from Last 3 Months Insurance [address] [place] [id number] [facility] [id number] Care Teams Lab Courier Relationship Specialty Start Date End Date Patricia French MD PCP - General Family Practice 11/21/12
--- OUTSIDE RECORDS SUMMARY | 2025-10-13 07:49 | XMS_ITS | Clinical Summary ---
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 Assessment & Plan (10/19/2024 3:40 PM SIEVE REPAIRER): I recommended using the steroid ointment twice [...] understands. Assessment & Plan (10/05/2023 6:39 PM SIEVE REPAIRER): Things are under control. I recommended using the steroid cream as needed. Follow-up as needed. Assessment & Plan (04/04/2023 10:04 AM CDT): This seems to be pretty stable and controlled using the steroid cream. I recommended continue with that as needed. 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 [...] immediately. Assessment & Plan (10/19/2024 3:41 PM SIEVE REPAIRER): The right ear was cleaned without difficulty. Tolerated well. Assessment & Plan (04/04/2024 2:59 PM CDT): She had a large cerumen impaction on the right side that was removed and a smaller amount on the left. Again I recommended avoiding Q-tips and apply the steroid cream as needed. I am recommending a follow-up in about 6 months. Assessment & Plan (10/05/2023 6:40 PM SIEVE REPAIRER): She had wax on both sides, more [...] months. Assessment & Plan (10/05/2022 7:23 PM SIEVE REPAIRER): Both ears were cleaned under the microscope. [...] Department Care Team Description 09/23/2025 9:00 AM SIEVE REPAIRER Office Visit [facility] [address] [place] [address] [address]nd [address] [place] [address] Everardo Barron MD Mallet finger of right hand (Primary Dx); Pain involving joint of finger of right hand; Hx of fracture of finger 08/26/2025 1:00 PM CDT Office Visit [facility] [address] [place] [address] Kedar Molina MD Chronic eczematous otitis externa of both ears (Primary Dx); Bilateral impacted cerumen 08/12/2025 9:35 AM CDT Therapy [facility] [id number] [place] [address] 1[address] [place] [id number] Aspen Mcnamara, OT Mallet finger of right hand (Primary Dx) 08/12/2025 9:10 AM CDT Office Visit [facility] Orth[facility] [address] [facility] 2nd [address] [place] [address] Everardo Barron MD Mallet finger of right hand (Primary Dx) 07/22/2025 9:35 AM CDT Therapy [facility] [address] [place] [address] 1[address] [place] [address] Janet Meriroger Terry, BARTOLO Mallet finger of right hand (Primary Dx) 07/22/2025 8:30 AM CDT Office Visit [facility] [address] [place] [address] [address] [place] [address] Everardo Barron MD Mallet finger of right [...] Larry Prose Paternal Grandmother Nicolle Cortez Sister Katie Cervantes Alive Social History Tobacco Use Types [...] on file Legal Sex Female 10:11 AM SIEVE REPAIRER Gender Identity Not on file Sexual Orientation [...] age to complete this topic Insurance [address] [place] [id number] [facility] CHOICE PLUS [facility] CHOICE PLUS [facility] CHOICE PLUS Care Teams Heavy Machinery Assembler Relationship Specialty Start Date End Date Patricia French MD PCP - General Family Medicine 12/21/18
[2025-10-13 07:58] LABS: Alanine Aminotransferase 13 U/L (6-35); Albumin Level 4.2 g/dL (3.5-5.1); Alkaline Phosphatase 73 U/L (38-126); Anion Gap 5 mmol/L (4-12); Aspartate Amino Transferase 24 U/L (14-36); Bilirubin,Total 0.6 mg/dL (0.2-1.3); Blood Urea Nitrogen 20 mg/dL (7-17); Calcium 9.3 mg/dL (8.4-10.2); Carbon Dioxide 26 mmol/L (22-30); Chloride 108 mmol/L (98-107); Estimated CRCL calculation 58 ml/min; Estimated Glomerular Filt Rate > 60; Glucose 77 mg/dL (65-110); Lipase 159 U/L (23-300); Potassium 3.8 mmol/L (3.4-5.0); Sodium 139 mmol/L (137-145); Total Protein 6.8 g/dL (6.3-8.2)
[2025-10-13] MEDS: ASPIRIN 81 MG CHEWABLE TABLET 324 MG PO (07:58)
[2025-10-13] MEDS: BELLADONNA ALK/PHENOB ELIX 10 ML, MAG HYDROX/ALUMINUM HYD/SIMETH 30 ML, LIDOCAINE 2% VI... PO (07:59)
[2025-10-13] MEDS: PANTOPRAZOLE SODIUM IV 40 MG VIAL IV PUSH (08:04)
[2025-10-13 08:09] LABS: Troponin I < 0.012 ng/mL (0.000-0.034)
[2025-10-13 08:19] LABS: INR 1.1; Prothrombin Time 13.7 Seconds (11.1-14.7)
[2025-10-13 08:20] LABS: Partial Thromboplastin Time 23.7 Seconds (22.3-36.8)
--- NOTE | 2025-10-13 10:11 | ECG_ITS ---
Test Date: 2025-10-13 10:31:45 Measurements Intervals [place] Rate: 74 P: 59 [place]: 180 QRS: 9 QRSD: 85 T: 52 QT: 367 QTc: 408 Interpretive Statements SINUS RHYTHM NORMAL ECG Compared to ECG 10/13/2025 07:24:01 No significant changes Electronically Signed On 10-13-2025 13:55:19 AX SURVEY WORKER by Aldo Brian M.D.
[2025-10-13 11:05] LABS: Troponin I < 0.012 ng/mL (0.000-0.034)
== END 2025-10-13 11:42 | disposition home or self-care (01) ==
PROVIDERS: Emergency Provider Emergency Medicine; PCP Family Medicine
DX: R10.13 Epigastric pain (principal); K21.9 Gastro-esophageal reflux disease without esophagitis; M19.09 Primary osteoarthritis, other specified site
CPT/HCPCS: 36415; 71046; 80053; 83690; 84484; 85025; 85610; 85730; 93005; 96374; 99284; A9270; J2470